=== PATIENT | female | born 1950 | race Caucasian/White ===

== ENCOUNTER → 2017-12-05 | Outpatient (CLI) | payer OTHER ==
[~2017-12-05] MED LIST: CYCL10TA6 PO; GLC/500 PO; HYDR2.5C37 TOP; HYDR25SU20 PR; HYDR25TA4 PO; LORA10TA51 PO; MELO-83 PO; MOVE FREE PO; OMEP40CA PO; POTA10CA28 PO; PRED20TA PO
--- NOTE | 2017-12-06 06:13 | PAP/PSG TECHNICIAN REPORT ---
[facility] Judo Teacher Polysomnogram Report Study name: None Report date: 12/06/2017 Study date: 12/05/2017 Referring Physician: Dr. Jazmine Thapa M.D. Name: MALIHA NOLAN Interpreting Physician: Nnamdi Maya M.D. Date of : 1950 Judo Teacher: Gail Berry RPSGT. Sex: Female Age: 67 Study Type: PSG Weight: 154 lbs 13.5 in Height: 67 years, Height 5' 4" Neck Circum: BMI: 26.43 Medications: MELOXICAM 15 MG, ASPIRIN 81 MG, METOPROLOL 25 MG, METFORMIN 500 MG, RANITIDINE 150 MG, PRAVASTATIN 10 MG, PANTOPRAZOLE 20 MG, PREMARIN 0.625 MG/GM, LORATIDINE 10 MG, PRESERVISION Patient History 67 yr-old female here for a baseline/split study. The split study is modified to initiate CPAP if the AHI is greater than 15. She has a history of snoring, witnessed apneas, frequent awakenings, and daytime sleepiness. Her [place] scale is 2. The test was started on room air. ETCO2 testing in included in this study. Room 3 Parameters Monitored NPSG: E1-M2, E2-M1, Fp1-M2, Fp2-M1, F3-M2, F4-M2, F4-M1, C3-M2, C4-M2, C4-M1, O1-M2, O2-M2, O2-M1, T3-M2, T4-M1, P3-M2, P4-M1, CHIN1, CHIN2, HR, EKG, Legs, PFLOW, SNOR, FLOW, CFLOW, Tidal Volume, THOR, ABDO, SpO2, PLTH, CPRESS, ETCO2 Wave, ETCO2, pH Sleep Architecture Sleep Stages Time at Lights Off 9:32:51 PM STAGES Time (min.) TST (%) Time at Lights On 5:28:21 AM Wake 222.5 -- Total Recording Time (TRT) 475.50 min. N1 49.0 19 Total Sleep Period (TSP) 449.0 min. N2 151.0 60 Total Sleep Time (TST) 253.0min. N3 33.5 13 Awake Time 222.5 min. REM 19.5 8 Wake after Sleep Onset 196.0 min. Sleep Efficiency (SE) 53 % Sleep Onset Latency (DAWN) 26.5 min. Number of Stage 1 Shifts None Awakenings 28 Stage Changes 110 Number of REM periods 1 REM 19.5 8 REM Latency 393.0 min. NREM 233.5 92 Body Position Analysis Supine Right Left Side Prone Vertical Total Sleep Time (min.) 117.4 37.5 176.2 213.68 0.0 0.0 Total Sleep Time (%) 16% 15% 70% 84 0% N/A% Total Sleep Time REM (min.) 0.0 0.0 19.5 None 0.0 0.0 Total Sleep Time NREM (min.) 39.3 37.5 156.7 None 0.0 0.0 Intermittent Wake (min.) 78.1 35.0 109.4 None 0.0 0.0 Total Sleep Period (%) 22% None None None None None Arousals Myoclonus (PLM) * Events Count Index Events Count Index Spontaneous 24 6 Events Awake (PLMW) 256 69.0 Respiratory 16 4.5 Events Asleep w/ Arousal (PLMA) 23 5.5 PLM 22 5 Events Asleep w/o Arousal (PLMS) 117 27.7 Snoring 6 1 Total Asleep 140 33.2 Total 65 15 Total 396 50 Respiratory Analysis * CA OA MA CH H RERA Total Count 5 7 3 0 45 8 60 Index 1.2 1.7 0.7 0 10.7 2 16.1 Mean Duration 15.2 16.2 22.2 0.00 17.4 17.2 17.3 Longest Duration 17.7 26.9 25.0 0.00 25.0 23.8 34.2 Respiratory Event Summary Total Supine ~Supine Right Left Prone REM NREM Apneas Count 15 10 5 1 4 N/A 1 14 Index 3.6 15 1 1.6 1.4 N/A 3 4 Hypopneas (4% Desat) Count 45 21 24 18 6 N/A 0 45 Index 10.7 32.0 7 28.8 2.0 N/A 0.0 11.6 Apneas & All Hypopneas Count 60 31 29 19 10 N/A 1 59 Index 14.2 47 8 30 3 N/A 3.1 15.2 Respiratory Events (Power System Operator+All Hyp+RERA) Count 60 32 36 25 11 N/A 1 59 Index 16.1 49 10 40.0 3.7 N/A 3.1 17.2 Respiratory Related Arousal Count 16 32 12 11 1 N/A 0 19 Index 4.5 11 3 18 0 N/A 0 5 Snoring Analysis Supine Right Left Prone REM NREM Total Snore duration 21.2 min Snores count 73 61 665 N/A 69 730 799 Snore mean duration 1.6 Sec Snores index 111 98 226 N/A 212.3 187.6 189.5 TST with snoring (%) 8.4% SpO2 Analysis Total REM NREM Awake <50% 0.0 min. 0.0 min. 0.0 min. 0.0 min. 51 - 60% 0.0 min. 0.0 min. 0.0 min. 0.0 min. 61 - 70% 0.0 min. 0.0 min. 0.0 min. 0.0 min. 71 - 80% 0.2 min. 0.0 min. 0.0 min. 0.2 min. 81 - 90% 96.5 min. 0.0 min. 76.0 min. 20.5 min. 91 - 100% 341.5 min. 19.5 min. 157.4 min. 164.6 min. Average 92 93 91 94 Minimum SpO2 79 91 84 79 Desaturation Event Index 12.5 0.0 17.7 8.9 # Desat. Events below 89% 57 N/A 46 11 Time(%) with Saturation below 89% 5.9 0.0 4.5 1.4 Time(min.) with Saturation below 89% 26.0 0.0 19.7 6.3 Heart Rate Analysis End Tidal CO2 Analysis Min (bpm) Max (bpm) Average (bpm) TSP (mins) % of TSP Awake 37 250 70 Above 55 mmHg 0.0 0.0 NREM 40 91 67 50-55 mmHg 0.0 0.0 REM 58 82 68 45-50 mmHg 115.5 45.7 Overall 40 91 67 40-45 mmHg 0.2 0.1 35-40 mmHg 76.7 30.3 30-35 mmHg 42.3 16.7 Average ETCO2 0.1 Supplemental O2 Values Minimum O2 level: None Value Start Time End Time Judo Teacher Comments Ms. Nolan slept in the right, left, and supine positions. Cardiac arrhythmias were noted throughout the study (please refer to the printout). PLMs were noted. No bruxism noted. Snoring was noted and scored as a 2 on a scale of 1 through 5. (0=no snoring, 5=snoring loud enough to be heard through a closed door or down the pablo way). A split study was attempted. At 1:50 am, she met specific Split-Night criteria during the diagnostic portion of this study. CPAP was initiated at +4 CMH2O. After starting CPAP, she struggled to tolerate the mask. She did have a small amount of sleep while wearing CPAP. But before any increases in pressure could be made, she requested to take the mask off. The test then was converted back to a baseline study with use of the thermistor. A Quattro Air full face mask size small from [employer] was used during titration. She awoke to use the restroom four times during the night. Ms. Nolan stated that she did not sleep well and did not care for the CPAP mask. The final report will be interpreted and signed by a sleep physician. The completed physician report will then be placed in the patient medical record. Therapy (cm H2O) 0 TIB (min.) 475.5 TST (min.) 253.0 Sleep Onset (min.) 26.5 REM Onset From Sleep (min.) 393.0 Sleep Efficiency % 53 Wakefulness (%) 47 Wakefulness (min.) 222.5 NREM 1 (%) 19 NREM 1 (min.) 49.0 NREM 2 (%) 60 NREM 2 (min.) 151.0 NREM 3 (%) 13 NREM 3 (min.) 33.5 REM (%) 8 REM (min.) 19.5 # Arousals 65 Arousal Index 15 # Snore 799 Snore Index 189.5 AHI 14.2 AHI Supine 47 AHI Non-Supine 8 NREM AHI 15.2 REM AHI 3.1 RDI 16.1 # Obstructive Apnea 7 # Central Apnea 5 # Mixed Apnea 3 # Hypopneas 45 RERAs 8 Total Respiratory Events 71 Time Below SpO2 89% (min.) 19.7 Mean NREM SpO2 (%) 91 Mean REM SpO2 (%) 93 Mean Sleep SpO2 (%) 91 Min NREM SpO2 (%) 84 Min REM SpO2 (%) 91 Position Supine (min.) 117.4 Position Non-supine (min.) 213.7 LM Index Sleep 33.2 LM Index NREM 35.5 LM Index REM 6.2 Mean Heart Rate (bpm) 67 Min Heart Rate (bpm) 40
--- NOTE | 2017-12-06 15:53 | POLYSOMNOGRAPH REPORT ---
CLINICAL DATA: A 67-year-old female with BMI of 26.4, referred by Dr. Thapa for a possible split night study if her AHI was greater than 15. She has snoring, witnessed apnea, frequent awakenings and daytime sleepiness. Her [place] sleepiness score was 2/24. SLEEP ARCHITECTURE: Total sleep period was 449 minutes. Total sleep time was 253 minutes divided between 233.5 minutes of non-REM sleep and 19.5 minutes of REM sleep. Sleep onset latency was 26.5 minutes. REM latency was delayed at 393 minutes. Sleep efficiency was reduced at 53%. Wake after sleep onset was elevated at 196 minutes. Sleep consisted of stage N1 19%, stage N2 60%, stage N3 13%, and REM 8%. AROUSAL DATA: Sixty five arousals were recorded for an index of 15 per hour. Twenty four were spontaneous. Twenty two were due to PLMs events. PERIODIC LIMB MOVEMENT DATA: One hundred and forty limb movements during sleep were noted for an index of 33.2 per hour with an arousal index of 5.5 per hour. RESPIRATORY DATA: Mild to moderate sleep apnea was documented. The AHI was 14.2. The RDI was 16.1. There were 5 central, 7 obstructive, and 3 mixed apneic episodes. The longest duration of apnea was 26.9 seconds. There were 45 hypopneic episodes. The longest hypopneic episode was 25 seconds. There were 8 RERAs. The longest RERA was 23.8 seconds. OXIMETRY DATA: Oxygen bakari was 84%. Mean saturation was 92%. Time below 89% was 26 minutes. ECHOCARDIOGRAM: Heart rates ranged from 40-91 beats per minute. Intermittent PVCs were noted. POLYSOMNOGRAPHY TECH'S COMMENTS: The patient slept in the right, left, and supine position. Snoring was mild, rated 2 on a scale 1-5. At 1:50 a.m., a split night study was attempted. CPAP was started at 4 cm of water pressure. She struggled with the mask and before any pressure increases could be made, she requested to have it discontinued. The study was then converted back to a baseline study. IMPRESSION: Mild to moderate sleep apnea/hypopnea with an apnea/hypopnea index of 14.2 and a respiratory disturbance index of 16.1 with an attempt at CPAP use. The patient was very intolerant of CPAP and could not proceed on with any CPAP titration. RECOMMENDATIONS: The patient should return to Dr. Thapa for his further recommendations. MTDD
== END | disposition home or self-care (01) ==
LOC: C.NEUR 21:00
PROVIDERS: ATTEND Internal Medicine
DX: G47.30 Sleep apnea, unspecified (principal)

== ENCOUNTER 2018-11-22 07:04 | Inpatient (IN) ==
--- NOTE | 2018-11-20 09:28 | Anesthesiology Consultation ---
Date of Service November 20, 2018 Assessment & Plan (1) Encounter for pre-operative examination: Plan: Preop EKG= 11/19/18= ST at 105bpm. ST/TWA, consider inferior ischemia (No signficant change compared to 01/15/2016 per cardio). Last seen by cardio= had accidentally taken her granson's Concerta/Loratadine and had subsequent dyspepsia/palpitations. Discussed ambulatory EKG but patient declined. Continued on current regimen. Seen in ER 11/17/2018 s/p mechanical fall (now with radius/humerus fractures-- reason for procedure)- denied chest pain, SOB, dizziness or syncope per ER note. Will evaluate clinical status AM DOS. - Check BSG AM DOS Chart Review Chart Review: Acceptable Risk for Surgery (pending clinical status evaluation AM DOS) and Patient NOT seen in Pre Admission Testing History Surgery Operation Date: 11/22/18 12:05 Proposed Procedures p Right Distal Radius Fracture Open Reduction Internal Fixation, Possible External Fixation Distal Radius, Right Humerus: Open Reduction Internal Fixation Humerus Fratures, Right Radius - Saúl Murray MD s External Fixator Application - Saúl Murray MD Height/Weight Height: 5 ft 4.75 in Weight: 69.4 kg Allergies Allergy/AdvReac Type Severity Reaction Status Date / Time morphine AdvReac Mild NAUSEA Verified 11/20/18 07:36 Medications Home Medications Medication Instructions Recorded Confirmed Last Taken conjugated estrogens [Premarin] 1 applic VAGINAL 2XWK 11/17/18 11/20/18 Unknown cyclobenzaprine 5 mg PO TID PRN 11/17/18 11/20/18 Unknown diltiazem HCl [Cardizem CD] 120 mg PO QAM 11/17/18 11/20/18 Unknown fluticasone [Flonase Allergy 1 spray INTRANASAL DAILY PRN 11/17/18 11/20/18 Unknown Relief] meloxicam 15 mg PO QAM 11/17/18 11/20/18 Unknown metformin 1,000 mg PO QAM 11/17/18 11/20/18 Unknown oxycodone 5 mg PO Q6H PRN #20 tab 11/17/18 11/20/18 Unknown pantoprazole 40 mg PO QAM 11/17/18 11/20/18 Unknown pravastatin 10 mg PO HS 11/17/18 11/20/18 Unknown ranitidine HCl 150 mg PO BID 11/17/18 11/20/18 Unknown aspirin [Aspirin Low Dose] 81 mg PO QAM 11/20/18 11/20/18 Unknown melatonin 5 - 10 mg PO HS PRN 11/20/18 11/20/18 Unknown Past Medical History Medical History Chronic back pain Degenerative disc disease Diabetes mellitus, type 2 NIDDM GERD (gastroesophageal reflux disease) Hiatal hernia History of palpitations Hyperlipidemia Hypertension Kidney stones Macular degeneration LEFT EYE Osteoarthritis Sleep apnea CPAP Past Family History Family History Mother FHx: Hodgkin's disease Past Surgical History Surgical History Fusion of spine C3-C4 (NO ROM LIMITATIONS PER PATIENT) H/O vaginal surgery ANTERIOR AND POSTERIOR REPAIR History of appendectomy History of carpal tunnel release RIGHT History of colonoscopy History of esophagogastroduodenoscopy (EGD) History of lithotripsy History of tonsillectomy S/P laparotomy / TUBAL (+RSO) Social History Smoking Status: Never smoker Do You Dip or Chew Tobacco: No Hx Alcohol Use: No Hx Substance Use: No substance use type: does not use Testing Electrocardiogram Date: 11/19/18 ST at 105[address]pm. ST/TWA, consider inferior ischemia (No signficant change compared to 01/15/2016 per cardio). Chest X-Ray Date: 11/17/18 Findings: + NAD A right humeral neck fracture is partially imaged. atherosclerotic calcification of the thoracic aorta. There is mild elevation of the right hemidiaphragm (same side as procedure) and bibasilar atelectasis. Echocardiogram Date: 08/28/17 LVEF 55-59%. No RWMA. Grade I DD. Basal septum consistent with sigmoid septum. No significant valvular disease. Stress Test Date: 08/28/17 Type: nuclear (LEXISCAN) Myocardial perfusion normal. EF 63%. 105% MPHR. Laboratory Results 11/19/18 WBC 11.83 (surgeon aware) H/H 13.2/39.2 PLATELETS 235 PT 10.3 PTT 24.7 INR 1.0 UA +1 bacteria (surgeon aware)
--- NOTE | 2018-11-21 12:30 | History and Physical Report ---
DATE OF ADMISSION: 11/22/2018 CHIEF COMPLAINT: Right shoulder and right wrist pain. HISTORY OF PRESENT ILLNESS: The patient is a 68-year female who suffered injuries to her right wrist and shoulder when she had a fall at home. She had immediate pain and disability. She was seen at [facility] ED for evaluation. X-rays revealed a right wrist fracture as well as a right proximal humerus fracture. She was referred to our office for further orthopedic evaluation. PAST MEDICAL HISTORY: Hypertension, hypercholesterolemia, irregular heartbeat, sleep apnea with CPAP use, type 2 diabetes, osteoarthritis, kidney stones, acid reflux. PAST SURGICAL HISTORY: Unknown. MEDICATIONS: Metformin 500 mg twice daily, PreserVision daily, aspirin 81 mg daily, Move Free joint health daily, Cartia XT 120 mg daily, ranitidine 150 mg twice daily, pravastatin 10 mg daily, pantoprazole 20 mg daily, meloxicam 50 mg daily. ALLERGIES: MORPHINE. SOCIAL HISTORY AND REVIEW OF SYSTEMS: Noncontributory. PHYSICAL EXAMINATION: GENERAL: Well-nourished, well-developed female who appears stated age. HEENT: Normocephalic, atraumatic, extraocular movements intact, oropharynx pink and moist. NECK: Supple without adenopathy. LUNGS: Clear to auscultation bilaterally. HEART: Regular rate and rhythm. ABDOMEN: Soft, nontender, nondistended. EXTREMITIES: The right wrist is in an ortho ground-glass splint. She is in a sling for the shoulder injury as well. Fingers were mobile, neurovascularly intact. X-RAYS: X-rays were reviewed. She has 100% displaced 2-part proximal humerus fracture. She also has a comminuted dorsally displaced distal radius fracture. ASSESSMENT: 1. Right proximal humerus fracture. 2. Right distal radius fracture. PLAN: Risks versus benefits were discussed, consent was obtained. We will proceed with ORIF of her right shoulder versus external fixator of the right wrist as indicated.
[~2018-11-22 07:04] MED LIST changes: +CEFAZOLIN 1000MG 1,000 MG/7.5 ML SYR IV SCH; -CYCL10TA6 PO; -GLC/500 PO; -HYDR2.5C37 TOP; -HYDR25SU20 PR; -HYDR25TA4 PO; -LORA10TA51 PO; +LR 15ML/HR IV SCH; -MELO-83 PO; +MISSING PHYSICIAN SIGNATURE ON ORDER SCH; -MOVE FREE PO; -OMEP40CA PO; -POTA10CA28 PO; -PRED20TA PO; +ROPIVACAINE 0.5% 5 MG/ML 30 ML VIAL ONE
[2018-11-22] MEDS ORDERED: PROPOFOL IV EMULSION 10 MG/ML 20 ML VIAL IV ONE ×2 (08:59→10:24)
[2018-11-22] MEDS ORDERED: LIDOCAINE HCL 2% 2 ML VIAL/AMP(20MG/ML) INFIL ONE ×2 (08:59→10:24)
[2018-11-22] MEDS ORDERED: fentaNYL citrate 100 MCG/2 ML VIAL ONE ×3 (09:00→10:43)
[2018-11-22] MEDS ORDERED: MIDAZOLAM HCL 1 MG/ML 2ML VIAL ONE ×2 (09:00→10:25)
[2018-11-22] MEDS ORDERED: ONDANSETRON INJ 2 MG/ML 2 ML VIAL ONE (09:01)
[2018-11-22] MEDS ORDERED: DEXAMETHASONE SOD INJ 4 MG/ML VIAL ONE (09:01)
--- NOTE | 2018-11-22 09:59 | History & Physical Bridge Note ---
Date of Service November 22, 2018 History & Physical Bridge Note I have examined the patient, reviewed the History & Physical and in the interval since the performance of the History & Physical I have noted the following changes of clinical significance: no changes noted
[2018-11-22] MEDS ORDERED: PROMETHAZINE HCL 12.5 MG in SODIUM CHLORIDE 0.9% 50 ML IV PRN (10:19)
[2018-11-22] MEDS ORDERED: ONDANSETRON INJ 2 MG/ML 2 ML VIAL IV PRN ×2 (10:19→14:05)
[2018-11-22] MEDS ORDERED: ATROPINE SULFATE 0.1 MG/ML 10ML SYR IV PRN (10:19)
[2018-11-22] MEDS ORDERED: FLUMAZENIL 0.1 MG/1 ML 10 ML VIAL IV PRN (10:19)
[2018-11-22] MEDS ORDERED: ePHEDrine sulfate 50 MG/ML AMP IV PRN (10:19)
[2018-11-22] MEDS ORDERED: LABETALOL HCL IV 5 MG/ML 20ML IV PRN (10:19)
[2018-11-22] MEDS ORDERED: NALOXONE HCL 0.4 MG/1 ML VIAL/CARP IV PRN ×2 (10:19→14:05)
[2018-11-22] MEDS ORDERED: SUCCINYLCHOLINE CHLORIDE 20 MG/ML 10 ML VIAL ONE (10:52)
[2018-11-22] MEDS ORDERED: ESMOLOL HCL INJ 10 MG/ML 10ML VIAL IV ONE (11:35)
--- NOTE | 2018-11-22 12:23 | Operative Report ---
Post Operative Report Pre & Post Diagnosis Operation Date: 11/22/18 10:05 Pre-Op Diagnosis: 1. Right proximal humerus fracture 2. Right distal radius fracture Post-Op Diagnosis: 1. Right proximal humerus fracture 2. Right distal radius fracture Procedure Operation Date: 11/22/18 10:05 Actual Procedures p Right Distal Radius Fracture External Fixation, Right Humerus Open Reduction Internal Fixation(Right) - Saúl Murray MD s External Fixator Application Right Distal Radius fracture(Right) - Saúl Murray MD Surgeon Saúl Murray MD Block And Case Maker Bryan Estimated Blood Loss 100 Findings Consistent with Post-Op Diagnosis Specimens None Complications none Disposition Accompanied Patient To Recovery: No Disposition: Recovery Room Description of Procedure Patient's right arm was prepped and draped in usual sterile manner first the shoulder was approached where a deltopectoral incision was made subcutaneous tissues bluntly dissected electrocautery with hemostasis. Cephalic vein was identified and protected and blunt dissection was taken down to bone. Open reduction of the fracture was carried out and provisionally held using a proximal humeral locking plate was applied to the lateral aspect of the humerus fixing the fracture in anatomic position check x-rays ensured good screw length throughout. This wound was irrigated and closed using #1 Vicryl 2-0 Dexon and 4 -0 nylon. Next attention was turned to the distal radius where a closed reduction was carried out. The intra-articular nature of the fracture with the very distal nature of the fracture was identified and the decision was made to go with an external fixator to through the tip pins were placed through the metacarpal and additional 2 were placed through the distal radius and while the reduction was held the external fixator was clamped in position. To maintain an anatomic reduction of the fracture. The wounds were irrigated and dressed with Xeroform 4 x 4's and Kerlix. The patient tolerated the procedure well. Mr. Masterskatey was utilized for portion of the case including positioning prepping draping surgical assistance wound closure and dressing application. I attest to the content of the Intraoperative Record and any orders documented therein. Any exceptions are noted below.
--- NOTE | 2018-11-22 12:41 | Fluoroscopy Report ---
FL wrist RT 3V RTN CLINICAL HISTORY: RIGHT DISTAL RADIUS ORIF COMPARISON STUDY: 11/17/2018 FLUOROSCOPY TIME: 11 seconds NUMBER OF FLUOROSCOPIC IMAGES: 3 FINDINGS: Operative placement of an external fixator involving the distal radius extending to the met acarpals. Fracture distal radius is again noted. Alignment is improved. IMPRESSION: Operative placement of an external fixator. The above report was generated using voice recognition software. It may contain grammatical, syntax or spelling errors. Electronically signed by: Lazaro Cuadra M.D. 11/22/2018 12:39 PM
--- NOTE | 2018-11-22 12:41 | Fluoroscopy Report ---
FL humerus RT 2V CLINICAL HISTORY: ORIF FX RT ARM COMPARISON STUDY: 11/17/2018 FLUOROSCOPY TIME: 16 seconds. NUMBER OF FLUOROSCOPIC IMAGES: 2 FINDINGS: There is an internally fixated proximal right humeral fracture. There is a lateral metallic plate with multiple screws. No dislocation is evident. IMPRESSION: Internally fixated proximal right humeral fracture. Electronically signed by: Harish Park M.D. 11/22/2018 12:40 PM
[2018-11-22] MEDS: HYDROmorphone INJ 1 MG/ML SYRINGE IV PRN ×4 (13:18→13:33)
--- NOTE | 2018-11-22 13:40 | Anesthesiology Progress Note ---
Date of Service November 22, 2018 Anesthesia Post Procedure Vital Signs Vital Signs: Temp Pulse Pulse Resp BP Pulse Ox 11/22/18 13:35 76 16 159/84 H 95 11/22/18 13:25 36.4 C L 77 16 162/82 H 94 11/22/18 13:15 78 16 150/71 H 94 11/22/18 13:05 75 14 150/88 H 97 11/22/18 12:55 77 16 141/87 H 97 11/22/18 12:49 36.2 C L 84 16 163/88 H 93 11/22/18 08:12 36.9 C 115 H 20 134/108 H 98 Pain Intensity Right Arm: Pain Intensity: 7 Left Lower Leg: Pain Intensity: 3 Notes Mental Status: alert / awake / arousable Patient Amnestic to Procedure: Yes Nausea / Vomiting: adequately controlled Pain: adequately controlled Airway Patency, RR, SpO2: stable & adequate BP & HR: stable & adequate Hydration State: stable & adequate Anesthetic Complications: no major complications apparent
[2018-11-22] MEDS ORDERED: SODIUM CHLORIDE 0.9% 1000ML 1,000 ML IV SCH (14:05)
[2018-11-22] MEDS ORDERED: MAGNESIUM HYDROXIDE SUSP 30 ML UDC PO PRN (14:05)
[2018-11-22] MEDS ORDERED: METOCLOPRAMIDE HCL INJ 5 MG/ML 2 ML VIAL IV PRN (14:05)
[2018-11-22] MEDS ORDERED: BISACODYL 10 MG SUPP PR PRN (14:05)
[2018-11-22] MEDS ORDERED: HYDROmorphone INJ 0.5 MG/0.5 ML SYR IV PRN (14:05)
[2018-11-22] MEDS ORDERED: FLUTICASONE PROPIONATE NA SPR 16 GM BTL PRN (14:05)
[2018-11-22] MEDS ORDERED: GLUCOSE 10 TABS/TUBE PO PRN (14:27)
[2018-11-22] MEDS ORDERED: CARBOHYDRATES FOR HYPOGLYCEMIA PO PRN (14:27)
[2018-11-22] MEDS ORDERED: GLUCAGON FOR INJ 1 MG VIAL SQ PRN (14:27)
[2018-11-22] MEDS ORDERED: GLUCOSE 40% GEL 15 GM TUBE PO PRN (14:27)
[2018-11-22] MEDS ORDERED: DEXTROSE 50% 50 ML SYRINGE IV PRN (14:27)
[2018-11-22] MEDS ORDERED: PHARMACY GLYCEMIC MGMT CONSULT SCH (14:29)
[2018-11-22] MEDS ORDERED: LANTUS PER UNIT CHARGE SQ ONE ×3 (14:30→21:00)
[2018-11-22] MEDS: ACETAMINOPHEN 500 MG TAB PO SCH ×2 (14:52→21:07)
--- NOTE | 2018-11-22 14:52 | Pharmacy Report ---
Glycemic Control Consultation - Date of Service November 22, 2018 - Scope Scope: Glycemic Pharmacist consulted by Main Adams on 11/22/18 for glycemic control and to write orders per [facility] inpatient glycemic control protocol - Objective Weight: 69.808 kg Accuchecks BSG (last 24hrs): 11/22/18 11/22/18 11/22/18 07:49 12:56 14:20 POC Glucose 154 H 117 H 172 H - Recent Pertinent Medications Outpatient Anti-diabetic Regimen: * Metformin 1g PO daily * A1c = pending Risk Factors for Insulin Resistance: * Steroids: Dexamethasone 8mg IV x 1 * Recent Surgery: s/p radius and humerus fixations * Diet: Type 2 DM - Assessment & Plan Assessment & Plan: ASSESSMENT: * 68 year old female admitted with radius and humerus fractures, s/p fixations. * Type 2 diabetic, unknown outpatient control, updated A1c ordered * Pt is maintained on oral antidiabetic agents as an outpatient * Oral agents are not recommended for inpatient use d/t drug interactions, changing PO intake, and difficulty titrating for acute hyper/hypoglycemia. ADA recommends re-initiating outpatient oral agents 1-2 days prior to discharge if/ when appropriate if they were held on admission. * Will hold oral agents for admission and utilize SQ basal bolus insulin regimen which is the recommended regimen for inpatient glycemic control. * Will initiate weight based insulin dosing for insulin na�ve patient and titrate based on BSG trends. * One time stress of 3 Lantus dose now for IV Dexamethasone received intraop, for anticipated hyperglycemia, patient already above goal with BSG 172mg/dl postop. * Will give additional Lantus in AM, based on BSGs * Accuchecks overnight d/t IV steroids * ADA & AACE recommend a goal blood sugar range 140-180 mg/dl for the majority of critically ill & non-critically ill patients. However, more stringent targets may be selected in individual cases. Will utilize more stringent goal of 110-140mg/dl based on patient age & comorbidities. Additionally, tighter glycemic control is warranted to facilitate wound/infection healing. PLAN FOR INPATIENT GLYCEMIC CONTROL: * Holding outpatient oral diabetes medications * Basal insulin * Lantus 30 units SQ x 1 dose NOW, then further dosing in the morning based on BSGs * Bolus insulin * NovoLog per scale ACHS or Q6hrs while NPO and at 0000 and 0400 * Goal Range: Low 110 mg/dL - High 140 mg/dL * Correction Factor: 25 mg/dL/unit * Nutritional / Prandial insulin per carb ratio of 1 unit per 8 grams CHO consumed * Please note that the plan above was derived based on current level of insulin resistance and hospital stress. These recommendations are appropriate for inpatient admission only. Plan of care upon discharge will need to be reassessed to avoid potential outpatient hypo/hyperglycemia. Thank you.
[2018-11-22] MEDS: OXYCODONE HCL IR 5 MG TAB (IMMEDIATE RELEASE) PO PRN (18:40)
[2018-11-22] MEDS: CEFAZOLIN 1000MG 1,000 MG/7.5 ML SYR IV SCH (18:54)
[2018-11-22] MEDS: INSULIN ASPART 100 UNITS/ML 3 ML PEN SC SCH ×2 (19:08→21:11)
[2018-11-22] MEDS ORDERED: SENNA 8.6 MG TAB PO SCH (21:00)
[2018-11-22] MEDS ORDERED: PRAVASTATIN SOD 10 MG TAB PO SCH (21:00)
[2018-11-22] MEDS: ASPIRIN 81 MG ECTAB PO SCH (21:04)
[2018-11-22] MEDS: DOCUSATE SODIUM 100 MG CAP PO SCH (21:04)
[2018-11-23] MEDS: INSULIN ASPART 100 UNITS/ML 3 ML PEN SC SCH ×4 (00:01→14:27)
[2018-11-23] MEDS ORDERED: COUGH DROP (SUGAR FREE) LOZ 24 LOZ/1 BOX BUCCAL PRN (00:04)
[2018-11-23] MEDS: CEFAZOLIN 1000MG 1,000 MG/7.5 ML SYR IV SCH (03:54)
[2018-11-23] MEDS: OXYCODONE HCL IR 5 MG TAB (IMMEDIATE RELEASE) PO PRN ×2 (03:54→08:59)
[2018-11-23] MEDS: ACETAMINOPHEN 500 MG TAB PO SCH ×2 (05:34→14:27)
[2018-11-23 07:23] LABS: Hematocrit (blood only) 33.2 % (37-47); Hemoglobin 11.3 g/dL (12.0-16.0); Mean Corpuscular Volume 89.7 fL (80-100); Mean Platelet Volume 9.9 fL (7.4-10.4); Platelet Count 257 K/uL (130-400); RDW Coefficient of Variation 14.7 % (11.5-14.5); RDW Standard Deviation 47.7 fL (36.4-46.3); White Blood Count 13.51 K/uL (4.8-10.8)
[2018-11-23 07:48] LABS: BUN Creatinine Ratio 14.4 (10-20); Calcium 8.2 mg/dl (8.5-10.1); Creatinine Clr Calc Pharmacy 63.3 ml/min; Est GFR (Non-African American) 72.5; Potassium 3.4 mmol/L (3.5-5.1)
--- NOTE | 2018-11-23 08:07 | Orthopedic Progress Note ---
Date of Service November 23, 2018 Assessment & Plan (1) Closed fracture of neck of right humerus: Continue sling for now. Nonweightbearing on the right upper extremity with no range of motion of the right shoulder at this time. She will have PT and OT protocols today. Continue DVT prophylaxis with SCDs, MICHELLE hose and aspirin twice daily. Pain management with hydromorphone, oxycodone, acetaminophen. As long as she is progressing with her PT, we will plan for discharge today. (2) Closed fracture of right distal radius: Subjective Postop day 1 status post ORIF right proximal humerus and application of external fixator right wrist for radius fracture. Patient is currently lying in bed is awake and alert and oriented. She states that she has some discomfort in the wrist more than the shoulder but is otherwise doing well. Any shortness of breath, chest pain, lightheadedness. He states that the pain medications are helping her. She is hoping to go home today. Physical Exam 2 Vital Signs (Past 24 Hours): Last Vital Signs Temp 36.9 C 11/23/18 07:31 Pulse 92 H 11/23/18 07:31 Resp 18 11/23/18 07:31 BP 162/74 H 11/23/18 07:31 Pulse Ox 91 11/23/18 07:31 Physical Exam: Dressings are clean dry and intact on the right shoulder. Dressings and external fixator appear intact on the right wrist. No overt drainage is noted on either dressing. She is moving her fingers well of the right hand and has good sensation. She states that it hurts whenever she moves her fingers is tolerating well. Capillary refill is less than 2 seconds. _ (1) Closed fracture of neck of right humerus Encounter type: initial encounter Fracture healing: Qualified Code(s): S42.211A - Unspecified displaced fracture of surgical neck of right humerus, initial encounter for closed fracture (2) Closed fracture of right distal radius Encounter type: initial encounter Fracture healing: Fracture morphology: unspecified fracture morphology Qualified Code(s): S52.501A - Unspecified fracture of the lower end of right radius, initial encounter for closed fracture
[2018-11-23] MEDS: DOCUSATE SODIUM 100 MG CAP PO SCH (08:32)
[2018-11-23] MEDS: ASPIRIN 81 MG ECTAB PO SCH (08:32)
[2018-11-23 08:34] LABS: Estimated Average Glucose 120 mg/dl; Hemoglobin A1C 5.8 % (4.5-5.6)
[2018-11-23] MEDS ORDERED: dilTIAZem HCL 120 MG CAPCR PO SCH (09:00)
[2018-11-23] MEDS ORDERED: METFORMIN HCL ER 500 MG TABCR PO SCH (09:00)
[2018-11-23] MEDS ORDERED: MULTIVITAMIN TAB PO SCH (09:00)
[2018-11-23] MEDS ORDERED: PANTOprazole 40 MG TAB PO SCH (09:00)
--- NOTE | 2018-11-23 09:52 | Anesthesiology Progress Note ---
Date of Service November 23, 2018 Anesthesia Post Procedure Vital Signs Vital Signs: Temp Pulse Pulse Resp BP Pulse Ox 11/23/18 07:31 36.9 C 92 H 18 162/74 H 91 11/23/18 02:59 37.0 C 93 H 16 148/71 H 91 11/23/18 00:08 37.0 C 63 16 135/70 90 11/22/18 18:58 36.7 C 79 16 158/78 H 91 11/22/18 16:02 96 H 16 138/80 96 11/22/18 15:05 36.6 C 75 99 H 152/75 H 99 11/22/18 14:34 36.7 C 85 16 160/82 H 96 11/22/18 14:05 37.0 C 83 14 159/83 H 95 11/22/18 13:45 76 16 161/84 H 95 11/22/18 13:35 76 16 159/84 H 95 11/22/18 13:25 36.4 C L 77 16 162/82 H 94 11/22/18 13:15 78 16 150/71 H 94 11/22/18 13:05 75 14 150/88 H 97 11/22/18 12:55 77 16 141/87 H 97 11/22/18 12:49 36.2 C L 84 16 163/88 H 93 Pain Intensity Right Arm: Pain Intensity: 4 Left Lower Leg: Pain Intensity: 3 Notes Mental Status: alert / awake / arousable Patient Amnestic to Procedure: Yes Nausea / Vomiting: adequately controlled Pain: adequately controlled Airway Patency, RR, SpO2: stable & adequate BP & HR: stable & adequate Hydration State: stable & adequate Anesthetic Complications: no major complications apparent
--- NOTE | 2018-11-23 10:22 | Pharmacy Report ---
Pharmacy Glycemic Short Note 2 - Date of Service November 23, 2018 - Glycemic Short BSG Results (Last 24 hours): 11/22/18 11/22/18 11/22/18 12:56 14:20 19:00 Glucose POC Glucose 117 H 172 H 203 H 11/22/18 11/22/18 11/23/18 21:03 23:54 03:54 Glucose POC Glucose 173 H 138 H 130 H 11/23/18 11/23/18 06:53 08:05 Glucose 138 H POC Glucose 134 H OUTPATIENT ANTIDIABETIC REGIMEN: * Metformin 1,000mg PO daily * A1c = 5.8% on 11/23/18 ASSESSMENT: * 68yo T2DM female s/p hip fracture surgery * Pt initially with hyperglycemia post-operatively secondary to dxm given intraop. Pt ordered weight/high stress SQ basal bolus insulin dosing for steroid induced hyperglycemia. * Hyperglycemia now resolved with effects of dxm dissipating. Will start to taper insulin and resume oral outpatient anti-diabetic medications in anticipation of discharge. PLAN FOR INPATIENT GLYCEMIC CONTROL: * Resume oral outpatient antidiabetic agents now that tolerating PO and POD#1 * Metformin 1,000mg PO Daily * Basal insulin * DC * Bolus insulin: loosen parameters * NovoLog per scale ACHS or Q6hrs while NPO * Goal Range: Low 110 mg/dL - High 140 mg/dL * Correction Factor: 35 mg/dL/unit * Nutritional / Prandial insulin per carb ratio of 1 unit per 11 grams CHO consumed * Will dc CR this evening after metformin initiated
--- NOTE | 2018-11-29 10:33 | Discharge Summary ---
DISCHARGE DIAGNOSES: Right proximal humerus fracture, right distal radius fracture. SECONDARY DIAGNOSES: Hypertension, hypercholesterolemia, irregular heartbeat, sleep apnea with CPAP use, type 2 diabetes mellitus, osteoarthritis, history of renal calculi, gastroesophageal reflux disease. CONSULTATIONS: None. COMPLICATIONS: None. PROCEDURES: ORIF right proximal humerus fracture and closed reduction and application of external fixator of right distal radius fracture by Dr. Murray on 11/22/2018. BRIEF HISTORY: As dictated in the history and physical. HOSPITAL SUMMARY: The patient was admitted on the above-noted date and had the above-noted surgery performed, which she tolerated well. On the first postoperative day, she was lying in bed, awake and alert, states that she had some discomfort in the wrist more than the shoulder, but was otherwise doing well. She had no shortness of breath or chest pain or lightheadedness. She stated the pain medications were helping her and she was hoping to get home that day. Vital signs were stable. She was afebrile. Dressings were clean, dry and intact in the right shoulder. Dressings and external fixator appeared intact on the right wrist. She had no overt drainage noted on either dressing. She was moving her fingers well. The right hand had good sensation. Cap refill was less than 2 seconds. Plans were to continue sling for the right upper extremity, nonweightbearing on the right upper extremity with no range of motion of the right shoulder at that time. PT and OT protocols for the morning, DVT prophylaxis with SCDs, MICHELLE hose and aspirin, pain management with hydromorphone, oxycodone, acetaminophen. She progressed well with her PT and it was felt she could be discharged to home on 11/23/2018. For further review, please see chart. LABORATORY AND X-RAY DATA: As per chart. DISCHARGE INSTRUCTIONS: The patient was discharged home in satisfactory condition on 11/23/2018. Diet: Type 2 diabetic. Activity: Nonweightbearing right upper extremity. Follow instructions as written and follow up with Dr. Murray in 2 weeks. The patient is to call for appointment if one has not been made for you. DISCHARGE MEDICATIONS: Acetaminophen 1000 mg p.o. q. 8 hours, oxycodone 5-10 mg p.o. q. 6 hours p.r.n. Resume home meds as listed and stop taking extra-strength Tylenol with prior dose. Stop taking meloxicam and previous oxycodone dosage.
== END 2018-11-23 15:35 | disposition home health service (06) | DRG 493 ==
LOC: ASU 07:04 → 3E 13:06

== ENCOUNTER 2022-10-25 10:23 | Inpatient (IN) ==
[2022-10-25] MEDS ORDERED: ONDANSETRON INJ 2 MG/ML 2 ML VIAL IV STA (11:25)
[2022-10-25] MEDS ORDERED: fentaNYL citrate 100 MCG/2 ML VIAL IV STA ×3 (11:25→13:24)
--- NOTE | 2022-10-25 11:39 | XRay Report ---
XR ankle RT min 3V routine HISTORY: 72 years-old Female pain acute pain of the right ankle status post trauma COMPARISON: None TECHNIQUE: 3 views of the right ankle FINDINGS: Acute fracture dislocation of the right ankle. Acute comminuted angulated and displaced distal fibula r fracture with apex medial angulation. Medial malleolar fracture demonstrates several millimeters of lateral displacement. Stevenson volar angulation. Acute posterior malleolar fracture is also present. The re is tibiotalar dislocation with apex medial angulation. The distal tibia is displaced 2.5 cm in rel ation to the talus. Demineralized appearance of the bones with mild to moderate osteoarthritis. IMPRESSION: Acute fracture dislocation of the ankle as above. ACT 112: Negative or not required by law. The above report was generated using voice recognition software. It may contain grammatical, syntax o r spelling errors. Electronically signed by: Rodrigue Jordan M.D. 10/25/2022 11:38 AM
--- NOTE | 2022-10-25 11:46 | Emergency Department Note ---
ED Provider Note History of Present Illness Chief Complaint: Ankle Pain Stated Complaint: POSSIBLE RIGHT BROKEN ANKLE Time Seen by Provider: 10/25/22 11:01 72-year-old female who presents to the emergency department for evaluation of a right ankle injury this morning when she slipped on rocks that were covered with ice, and fell. The patient reports a deformity and pain of the right ankle. She denies any other injuries, including head injury, neck pain or back pain. She rates her discomfort a 10 out of 10. The patient has had prior orthopedic surgery performed by Dr. Murray with [facility]. Home Medications Medication Instructions Recorded Confirmed Type conjugated estrogens 0.625 mg/gram 1 applic vaginal DIRECTED PRN 11/17/18 10/25/22 History vaginal cream (Premarin) Menopausal Symptoms metformin 500 mg tablet 500 mg PO BID 11/17/18 10/25/22 History Lactobacills gasseri-Bifidobac 1 cap PO QAM 09/27/19 10/25/22 History bifidum,longum 1.5 billion cell capsule (Cooleaf) cartilage 40 mg-collagen II-boron 1 tab PO QAM 09/27/19 10/25/22 History 5 mg-hyaluronate sod 3.3 mg tablet (Move Free Ultra Triple Action (boron)) coenzyme Q10 30 mg capsule (CoQ-10) 0 mg PO QAM 09/27/19 10/25/22 History famotidine 20 mg tablet 20 mg PO HS PRN Heartburn 09/27/19 10/25/22 History vit C 250 mg-vit E 90 mg-zinc 40 1 tab PO BID 09/27/19 10/25/22 History mg-copper 1 ut-gghjwu-uakjca capsule (PreserVision AREDS-2) diclofenac sodium 1 % topical gel 2 g topical QID PRN Pain 08/23/22 10/25/22 History docusate sodium 100 mg capsule 100 mg PO BID 08/23/22 10/25/22 History diltiazem HCl 180 mg 180 mg PO DAILY 10/25/22 10/25/22 History capsule,extended release 24 hr pantoprazole 40 mg tablet,delayed 40 mg PO DAILY 10/25/22 10/25/22 History release pravastatin 40 mg tablet 40 mg PO HS 10/25/22 10/25/22 History Allergies Allergy/AdvReac Type Severity Reaction Status Date / Time morphine AdvReac Intermediate Nausea/Vomi Verified 09/13/22 08:20 ting Past Med/Surg History Medical History Chronic back pain Degenerative disc disease Diabetes mellitus, type 2 NIDDM GERD (gastroesophageal reflux disease) Hiatal hernia History of palpitations resolved Hyperlipidemia Hypertension follows w/ [facility]ia Aguirre- [facility] - last visit spring 2021 Kidney stones Macular degeneration LEFT EYE Osteoarthritis Prediabetes Sleep apnea no longer using device Surgical History Fusion of spine C3-C4 (NO ROM LIMITATIONS PER PATIENT) H/O vaginal surgery ANTERIOR AND POSTERIOR REPAIR History of appendectomy History of carpal tunnel release RIGHT History of colonoscopy History of esophagogastroduodenoscopy (EGD) History of lithotripsy History of tonsillectomy Hx of cystoscopy Hx of shoulder surgery ORIF RIGHT S/P laparotomy 2/2 TUBAL (+RSO) Family History Mother FHx: Hodgkin's disease Father Heart disease Social History Smoking Status: Never smoker Second Hand Exposure: No; Do You Dip or Chew Tobacco: No; Hx Alcohol Use: No Hx Substance Use: No Preferred Language: Ukrainian Communication Ability: Effective Sack Sewer Machine Required: No Beliefs That Will Affect Care: None marital status: Current Living Situation: Spouse Current Living Situation Comment: [facility] Feels Safe at Home: Yes Safety Concerns: Feels Safe At This Time Assistive Devices: Denture - Upper and Glasses Physical Exam Vital Signs Vital Signs - 24 hr 10/25/22 10:55 10/25/22 12:11 Temperature 36.3 C L Temperature Source Temporal Artery Scan Pulse Rate 75 Pulse Rate [Finger] 72 Respiratory Rate 18 20 Respiratory Effort / Characteristics Non-Labored Spontaneous Respiratory Depth Normal Respiratory Pattern Regular Blood Pressure 135/66 Blood Pressure [Right Arm] 149/79 H Blood Pressure Mean 89 Blood Pressure Mean [Right Arm] 102 Blood Pressure Position Sitting Blood Pressure Position [Right Arm] Sitting Pulse Oximetry 98 97 Oxygen Delivery Method Room Air Room Air Sepsis Recent Fever Within 48 Hours No Sepsis New/Unexplained Change in Mental Status No Sepsis Action Taken by Nursing No Action Required CONSTITUTIONAL: Healthy and well nourished. Patient appears in mild to moderate discomfort. Alert and oriented x3. HEENT: Normocephalic, atraumatic. NECK: Full active range of motion without discomfort. RESPIRATORY: Clear to auscultation bilaterally with no wheezing, crackles, rhonchi or stridor. CARDIOVASCULAR: Regular rate and rhythm with no murmurs, rubs or gallops. GASTROINTESTINAL: Bowel sounds present in all quadrants. Soft and nontender to palpation. MUSCULOSKELETAL: Examination shows a deformity of the right ankle with notable medial skin tenting. No open wounds noted. Pedal pulses are present but weak. Cap refill of the toes is approximately 3 seconds. INTEGUMENTARY: No rash or other significant dermatologic conditions noted. HEMATOLOGIC: No ecchymosis or petechiae. PSYCHIATRIC: Positive affect. NEUROLOGIC: Right foot and toes are grossly sensory intact. Procedures Free Text Procedures Ankle fracture reduction was performed using IV fentanyl analgesics. It is noted that the patient had an unstable fracture with continuous tibiotalar dislocation. This required constant one-on-one traction performed by me. Postreduction x-rays shows improved alignment. With assistance by one of our ED technicians, an ankle stirrup and posterior Ortho-Glass splint was applied, ap plying pressure to the lateral ankle and foot region to maintain reduction. Patient maintained neurovascular status throughout her ED management. Course Course Patient history and physical exam were performed. Nurses notes were reviewed. Vital signs were reviewed and were normal. X-ray orders were placed per nursing protocol due to a busy emergency department. X-rays were completed as I assumed patient care, showing a trimalleolar fracture dislocation. I explained to the patient that I would need to perform a quick reduction of the ankle. She refused without conscious sedation. She last ate breakfast at 8:00. I explained that hospital policy is 8 hours after eating for conscious sedation. I did recommend starting an IV, and giving her some IV fentanyl in order to provide pain relief prior to reduction, and the patient was in agreement. The patient reports that she is allergic to morphine, which causes nausea and vomiting. I did indicate the fentanyl is much quicker onset in order to provide quick reduction, and the patient agreed to proceed with IV fentanyl. IV access was established, and labs were drawn. The patient was administered fentanyl 100 mcg and Zofran 4 mg IVP. She did require an additional dose of fentanyl 50 mcg prior to reduction. After allowing adequate time for analgesic effect, reduction was performed. It is noted that the patient had recurrent dislocations of the tibiotalar joint, which required constant traction being performed by me. Post reduction x-rays much better alignment of the fracture dislocation. An additional portable 2-view tib-fib did not show any proximal fractures. A portable chest x-ray was also ordered, performed and was unremarkable. Review of labs shows a mild hypokalemia, otherwise remaining labs were grossly normal. A preoperative ECG was also ordered but was not completed at the time of transfer of care at to the hospitalist service. Contact was made with [facility] (Dr. King and Main Adams PA-C). Dr. Rivera celeste reviewed x-rays, and recommended admission for surgical management. The case was further discussed with the [facility] hospitalist service, who has agreed with admission. Please see their dictation and orthopedic dictations for further treatment and final disposition. While awaiting for hospitalist and orthopedic evaluation, the patient did complain of worsening ankle pain with tingling into her foot and toes. I did repeat x-ray imaging of the ankle to show only a mild subluxation of the tibiotalar joint. It is noted that the patient has maintained neurovascular status throughout her ED evaluation. I did recommend trying a low-dose of morphine to give the patient a more steady state pain control, and she was in agreement. She was administered morphine 2 mg IVP without adverse reaction. The case was also discussed with Dr. Herndon, ED attending physician, who agrees with work-up provided and admission for surgical management. Administered Medications Insulin Aspart (Insulin Aspart Per Unit) 0 units SC ACHS [facility] Stop: 11/24/22 18:04 Last Admin: 10/25/22 19:25 Dose: Not Given Documented By: PRIYANKA Co-signed By: DP Discontinued Medications Acetaminophen (Acetaminophen 500 Mg Tab) 1,000 mg PO Q8H BEBE Stop: 10/25/22 18:06 Last Admin: 10/25/22 19:32 Dose: 1,000 mg Documented By: PRIYANKA Fentanyl Citrate (Fentanyl Citrate 100 Mcg/2 Ml Vial) 100 mcg IV NOW [facility] Stop: 10/25/22 11:26 Last Admin: 10/25/22 12:07 Dose: 100 mcg Documented By: QGV Fentanyl Citrate (Fentanyl Citrate 100 Mcg/2 Ml Vial) 50 mcg IV NOW STA Stop: 10/25/22 12:57 Last Admin: 10/25/22 13:07 Dose: 50 mcg Documented By: QGV Fentanyl Citrate (Fentanyl Citrate 100 Mcg/2 Ml Vial) 50 mcg IV NOW STA Stop: 10/25/22 13:25 Last Admin: 10/25/22 13:25 Dose: 50 mcg Documented By: QGV Morphine Sulfate (Morphine Sulfate 2 Mg/Ml Carp) 2 mg IV NOW STA Stop: 10/25/22 13:21 Last Admin: 10/25/22 13:34 Dose: 2 mg Documented By: QGV Ondansetron HCl (Ondansetron Inj 2 Mg/Ml 2 Ml Vial) 4 mg IV NOW STA Stop: 10/25/22 11:26 Last Admin: 10/25/22 12:07 Dose: 4 mg Documented By: QGV Oxycodone HCl (Oxycodone Hcl Ir 5 Mg Tab (Immediate Release)) 5 mg PO NOW STA Stop: 10/25/22 15:27 Last Admin: 10/25/22 16:26 Dose: 5 mg Documented By: NIKO Potassium Chloride (Potassium Chloride Crtab 20 Meq Tabcr) 40 meq PO NOW STA Stop: 10/25/22 15:27 Last Admin: 10/25/22 16:26 Dose: 40 meq Documented By: NIKO Potassium Chloride (Potassium Chloride Crtab 20 Meq Tabcr) 40 meq PO PM ONE Stop: 10/25/22 20:01 Last Admin: 10/25/22 19:32 Dose: 40 meq Documented By: PRIYANKA Medical Decision Making Medical Records Attestation: I reviewed the patient's medical records. Home Medications was personally reviewed by me Laboratory Data Attestation: I reviewed the patient's lab results. 10/25/22 11:38 10/25/22 11:38 Lab Results 10/25/22 10/25/22 10/25/22 Range/Units 11:38 11:38 11:38 WBC 10.19 (4.8-10.8) K/ul RBC 4.34 (3.93-5.22) M/uL Hgb 11.7 L (12.0-16.0) g/dl Hct 36.0 (34.1-44.9) % MCV 82.9 (80.0-100.0) fL MCH 27.0 (25.0-34.0) pg MCHC 32.5 (32.0-36.0) g/dL RDW Std Deviation 44.6 (36.4-46.3) fL RDW Coeff of Onel 14.6 H (11.5-14.5) % Plt Count 275 (130-400) K/uL MPV 10.8 (9.4-12.3) fL Sodium 141 (136-145) mmol/L Potassium 3.1 L (3.5-5.1) mmol/L Chloride 107 (98-107) mmol/L Carbon Dioxide 25 (21-32) mmol/L Anion Gap 9 (3-11) BUN 11 (6-23) mg/dl Creatinine 0.71 (0.6-1.2) mg/dl Est Cr Clr Drug Dosing 61.8 ml/min Est GFR ( Amer) 98.6 ml/min Est GFR (Non-Af Amer) 85.1 ml/min BUN/Creatinine Ratio 15.5 (10-20) Glucose 107 H (70-99(Fasting)) mg/dl Calcium 9.8 (8.5-10.1) mg/dl Magnesium 1.8 (1.7-2.4) mg/dl Imaging Data Attestation: I personally reviewed and interpreted this imaging study as follows: My Impression: My interpretation of initial x-rays of the right ankle confirms a trimalleolar ankle fracture dislocation, as described in the following radiologist report. My interpretation of postreduction x-rays shows improved alignment of the fracture dislocation. My interpretation of a two-view portable tib-fib x-ray does not show any proximal fractures. Radiologist's Impression: Ankle X-Ray 10/25/22 10:55 XR ankle RT min 3V routine HISTORY: 72 years-old Female pain acute pain of the right ankle status post trauma COMPARISON: None TECHNIQUE: 3 views of the right ankle FINDINGS: Acute fracture dislocation of the right ankle. Acute comminuted angulated and displaced distal fibular fracture with apex medial angulation. Medial malleolar fracture demonstrates several millimeters of lateral displacement. [place] volar angulation. Acute posterior malleolar fracture is also present. There is tibiotalar dislocation with apex medial angulation. The distal tibia is displaced 2.5 cm in relation to the talus. Demineralized appearance of the bones with mild to moderate osteoarthritis. IMPRESSION: Acute fracture dislocation of the ankle as above. ACT 112: Negative or not required by law. The above report was generated using voice recognition software. It may contain grammatical, syntax or spelling errors. Electronically signed by: Rodrigue Jordan M.D. 10/25/2022 11:38 AM Ankle X-Ray 10/25/22 12:19 XR ankle RT min 3V routine, XR tibia fibula RT 2V CLINICAL HISTORY: Postreduction xray. Fall. Right ankle fracture. COMPARISON STUDY: Right ankle 10/25/2022. FINDINGS: Interval reduction of the trimalleolar right ankle fracture which demonstrates improved anatomic alignment. There is persistent posterior and lateral displacement of up to 6 mm. This results in mild lateral subluxation of the talus in relation to the distal tibia. There is diffuse soft tissue swelling within the right ankle. The bones are osteopenic. The proximal tibia and proximal fibula appear intact. IMPRESSION: 1. Status post reduction of the right ankle trimalleolar fracture/dislocation with improved anatomic alignment as described above. 2. The proximal tibia and proximal fibula appear intact. ACT 112: Negative or not required by law. Electronically signed by: John Dhillon M.D. 10/25/2022 12:52 PM Chest X-Ray 10/25/22 12:19 XR chest 1V portable CLINICAL HISTORY: Pre-op TECHNIQUE: Single frontal radiograph of the chest was obtained. Comparison: Comparison is made to chest radiograph 09/12/2022 FINDINGS: Right humeral orthopedic hardware is seen. Calcified aortic knob is seen. The lungs are clear. No evidence of pleural effusion or pneumothorax. IMPRESSION: No acute chest disease. ACT 112: Negative or not required by law. Electronically signed by: Alexis Thurston M.D. 10/25/2022 12:51 PM Tibia/Fibula X-Ray 10/25/22 12:19 XR ankle RT min 3V routine, XR tibia fibula RT 2V CLINICAL HISTORY: Postreduction xray. Fall. Right ankle fracture. COMPARISON STUDY: Right ankle 10/25/2022. FINDINGS: Interval reduction of the trimalleolar right ankle fracture which demonstrates improved anatomic alignment. There is persistent posterior and lateral displacement of up to 6 mm. This results in mild lateral subluxation of the talus in relation to the distal tibia. There is diffuse soft tissue swelling within the right ankle. The bones are osteopenic. The proximal tibia and proxim al fibula appear intact. IMPRESSION: 1. Status post reduction of the right ankle trimalleolar fracture/dislocation with improved anatomic alignment as described above. 2. The proximal tibia and proximal fibula appear intact. ACT 112: Negative or not required by law. Electronically signed by: John Dhillon M.D. 10/25/2022 12:52 PM MDM Narrative See ED course for further details of today's visit. The patient presents with a trimalleolar ankle fracture dislocation that was reduced, showing significant tibiotalar instability with recurrent dislocation. I did have to provide constant traction with application of an ankle stirrup and posterior splint to maintain alignment. Orthopedics has agreed to admission with surgical management. The patient did require several rounds of analgesics. The patient does not have an open fracture. The patient has maintained neurovascular status throughout her ED visit while under my care. Impression Fracture dislocation of right ankle, Closed trimalleolar fracture of ankle, Fall from slipping on slippery surface Discharge Plan Visit Data Chief Complaint: Ankle Pain Stated Complaint: POSSIBLE RIGHT BROKEN ANKLE ED Provider: Chava Herndon ED Midlevel Provider: Georges Shepherd Discharge Problem: Fracture dislocation of right ankle, Closed trimalleolar fracture of ankle, Fall from slipping on slippery surface Patient Disposition: Admitted As Inpatient Discharge Instructions Interventions: ED Discharge Assessment Last Done: 10/25/22 18:07 : Fracture dislocation of right ankle Qualifiers: Encounter type: initial encounter Fracture type: closed Qualified Code(s): S82.891A - Other fracture of right lower leg, initial encounter for closed fracture Closed trimalleolar fracture of ankle Qualifiers: Encounter type: initial encounter Laterality: right Qualified Code(s): S82.851A - Displaced trimalleolar fracture of right lower leg, initial encounter for closed fracture Fall from slipping on slippery surface Qualifiers: Encounter type: initial encounter Qualified Code(s): W01.0XXA - Fall on same level from slipping, tripping and stumbling without subsequent striking against object, initial encounter
[2022-10-25 11:56] LABS: Hemoglobin 11.7 g/dl (12.0-16.0); Mean Corpuscular Hgb Conc 32.5 g/dL (32.0-36.0); Mean Corpuscular Volume 82.9 fL (80.0-100.0); Mean Platelet Volume 10.8 fL (9.4-12.3); Platelet Count 275 K/uL (130-400); RDW Coefficient of Variation 14.6 % (11.5-14.5); RDW Standard Deviation 44.6 fL (36.4-46.3); Red Blood Count 4.34 M/uL (3.93-5.22); White Blood Count 10.19 K/ul (4.8-10.8)
[2022-10-25 12:19] LABS: BUN Creatinine Ratio 15.5 (10-20); Calcium 9.8 mg/dl (8.5-10.1); Creatinine Clr Calc Pharmacy 61.8 ml/min; Est GFR (African American) 98.6 ml/min; Est GFR (Non-African American) 85.1 ml/min; Potassium 3.1 mmol/L (3.5-5.1)
--- NOTE | 2022-10-25 12:53 | XRay Report ---
XR chest 1V portable CLINICAL HISTORY: Pre-op TECHNIQUE: Single frontal radiograph of the chest was obtained. Comparison: Comparison is made to chest radiograph 09/12/2022 FINDINGS: Right humeral orthopedic hardware is seen. Calcified aortic knob is seen. The lungs are clear. No azucena dence of pleural effusion or pneumothorax. IMPRESSION: No acute chest disease. ACT 112: Negative or not required by law. Electronically signed by: Alexis Thurston M.D. 10/25/2022 12:51 PM
--- NOTE | 2022-10-25 12:53 | XRay Report ---
XR ankle RT min 3V routine, XR tibia fibula RT 2V CLINICAL HISTORY: Postreduction xray. Fall. Right ankle fracture. COMPARISON STUDY: Right ankle 10/25/2022. FINDINGS: Interval reduction of the trimalleolar right ankle fracture which demonstrates improved kb tomic alignment. There is persistent posterior and lateral displacement of up to 6 mm. This results i n mild lateral subluxation of the talus in relation to the distal tibia. There is diffuse soft tissue swelling within the right ankle. The bones are osteopenic. The proximal tibia and proximal fibula ap pear intact. IMPRESSION: 1. Status post reduction of the right ankle trimalleolar fracture/dislocation with improved anatomic alignment as described above. 2. The proximal tibia and proximal fibula appear intact. ACT 112: Negative or not required by law. Electronically signed by: John Dhillon M.D. 10/25/2022 12:52 PM
[2022-10-25] MEDS ORDERED: MoRPHine SULFATE 2 MG/ML CARP IV STA (13:20)
--- NOTE | 2022-10-25 13:56 | History & Physical Report ---
Date of Service October 25, 2022 Assessment & Plan (1) Closed trimalleolar fracture of right ankle: Plan: Patient is 72-year-old female with PMH HTN, dyslipidemia, prediabetes, RA, CHANTELLE, GERD presented to ER with complaint of mechanical fall and right ankle pain this morning. Initial Right Ankle Xray: Acute fracture dislocation of the right ankle. Acute comminuted angulated and displaced distal fibular fracture with apex medial angulation. Medial malleolar fracture demonstrates several millimeters of lateral displacement. [place] volar angulation. Acute posterior malleolar fracture is also present. There is tibiotalar dislocation with apex medial angulation. Th e distal tibia is displaced 2.5 cm in relation to the talus. -In ER patient given fentanyl and ankle was manually reduced with repeat right ankle x-ray: S/P reduction of the right ankle trimalleolar fracture/dislocation with improved anatomic alignment as described above. The proximal tibia and proximal fibula appear intact. -Ortho consult. ER spoke to vendor management consultant, Dr King recommended admission -NPO midnight -Pain control with Tylenol, oxycodone, Dilaudid as needed -Bowel regimen -Nonweightbearing right leg -Pre-op EKG ordered (2) Hypokalemia: Plan: K: 3.1 -Magnesium lab ordered and pending -Replace and monitor (3) Hypertension: Plan: Stable -Continue diltiazem (4) Hyperlipidemia: Plan: -Continue pravastatin (5) Prediabetes: Plan: A1c: 5.8 on 08/04/2022 as per outpatient chart review -Hold metformin -NovoLog sliding scale per protocol. Monitor BSG's, may need to further adjust (6) Sleep apnea: Plan: -Noncompliant with CPAP DVT Prophylaxis -SCDs Full Code as per discussion with pt Follows with Dr James Don for routine care Pt was seen and care coordinated with Dr Qureshi. See addendum I spent a total of 75 minutes reviewing notes, outpatient records, labs, medication, coordinating, documenting and providing care for this patient excluding time spent in the performance of separately billed services. History of Present Illness Chief Complaint: Fall, right ankle pain Primary Care Provider: Angella Gardner MD Patient is 72-year-old female with PMH HTN, dyslipidemia, prediabetes, RA, CHANTELLE, GERD presented to ER with complaint of fall and right ankle pain prior to ER arrival today. Patient states was walking and slipped on ice injuring her right ankle. Was unable to bear weight on ankle. In ER found to have dislocated right trimalleolar fracture. Initially after injury patient had numbness/tingling sensation to right foot and toes which has since resolved after reduction performed in ER today. Patient denies any symptoms prior to fall. Denies history of prior right ankle injury. Denies fever/chills, diaphoresis, N/V/D/C, REILLY, dizziness, syncope, neck pain, CP, SOB, cough, sore throat, rhinorrhea, abdominal pain, extremity weakness, extremity edema, rashes, urinary symptoms. Allergies Allergy/AdvReac Type Severity Reaction Status Date / Time morphine AdvReac Intermediate Nausea/Vomi Verified 09/13/22 08:20 ting Home Medications Medication Instructions Recorded Confirmed Type conjugated estrogens 0.625 mg/gram 1 applic vaginal DIRECTED PRN 11/17/18 10/25/22 History vaginal cream (Premarin) Menopausal Symptoms metformin 500 mg tablet 500 mg PO BID 11/17/18 10/25/22 History Lactobacills gasseri-Bifidobac 1 cap PO QAM 09/27/19 10/25/22 History bifidum,longum 1.5 billion cell capsule (Tag'By) cartilage 40 mg-collagen II-boron 1 tab PO QAM 09/27/19 10/25/22 History 5 mg-hyaluronate sod 3.3 mg tablet (Move Free Ultra Triple Action (boron)) coenzyme Q10 30 mg capsule (CoQ-10) 0 mg PO QAM 09/27/19 10/25/22 History famotidine 20 mg tablet 20 mg PO HS PRN Heartburn 09/27/19 10/25/22 History vit C 250 mg-vit E 90 mg-zinc 40 1 tab PO BID 09/27/19 10/25/22 History mg-copper 1 nf-xbllfk-fareef capsule (PreserVision AREDS-2) diclofenac sodium 1 % topical gel 2 g topical QID PRN Pain 08/23/22 10/25/22 History docusate sodium 100 mg capsule 100 mg PO BID 08/23/22 10/25/22 History diltiazem HCl 180 mg 180 mg PO DAILY 10/25/22 10/25/22 History capsule,extended release 24 hr pantoprazole 40 mg tablet,delayed 40 mg PO DAILY 10/25/22 10/25/22 History release pravastatin 40 mg tablet 40 mg PO HS 10/25/22 10/25/22 History Past Med/Surg History Medical History Chronic back pain Degenerative disc disease Diabetes mellitus, type 2 NIDDM GERD (gastroesophageal reflux disease) Hiatal hernia History of palpitations resolved Hyperlipidemia Hypertension follows w/ Razia Aguirre- [facility] - last visit spring 2021 Kidney stones Macular degeneration LEFT EYE Osteoarthritis Prediabetes Sleep apnea no longer using device Surgical History Fusion of spine C3-C4 (NO ROM LIMITATIONS PER PATIENT) H/O vaginal surgery ANTERIOR AND POSTERIOR REPAIR History of appendectomy History of carpal tunnel release RIGHT History of colonoscopy History of esophagogastroduodenoscopy (EGD) History of lithotripsy History of tonsillectomy Hx of cystoscopy Hx of shoulder surgery ORIF RIGHT S/P laparotomy 2/2 TUBAL (+RSO) Family History Mother FHx: Hodgkin's disease Father Heart disease Social History Smoking Status: Never smoker Second Hand Exposure: No; Hx Alcohol Use: No Hx Substance Use: No Preferred Language: Peruvian Communication Ability: Effective Od Grinder Operator Required: No Beliefs That Will Affect Care: None marital status: Current Living Situation: Spouse Current Living Situation Comment: [facility] Feels Safe at Home: Yes Assistive Devices: Denture - Upper and Glasses Review of Systems Review of Systems: All systems reviewed & are unremarkable except as noted in HPI & below Physical Exam Physical Exam: General: no acute distress, WDWN Head: normocephalic, atraumatic Eyes: conjunctiva non-injected, anicteric ENT: normal inspection external ears, nose, mucous membranes moist Neck: supple, trachea midline Lungs: clear, no respiratory distress, no wheezing/rhonchi/rales CV: RRR, no murmur, no pretibial edema Abd: normal BS, soft, non-tender Ext: BUE: normal appearance with ROM intact. LLE: normal appearance, ROM intact. RLE: +splint to right lower leg in place. Neuro: A&O x 3, no focal deficits noted, normal affect Skin: warm, dry Results & Data Results & Data ([place]) Vital Signs (Past 12 Hours) Vital Signs Temp Pulse Pulse Resp BP BP Pulse Ox 10/25/22 12:11 72 20 149/79 H 97 10/25/22 10:55 36.3 C L 75 18 135/66 98 O2 Del Method 10/25/22 12:11 Room Air 10/25/22 10:55 Room Air Laboratory Results Short CBC 10/25/22 Range/Units 11:38 WBC 10.19 (4.8-10.8) K/ul Hgb 11.7 L (12.0-16.0) g/dl Hct 36.0 (34.1-44.9) % Plt Count 275 (130-400) K/uL BMP 10/25/22 11:38 Sodium 141 Potassium 3.1 L Chloride 107 Carbon Dioxide 25 BUN 11 Creatinine 0.71 Glucose 107 H Calcium 9.8 Diagnostic Findings Ankle X-Ray 10/25/22 10:55 XR ankle RT min 3V routine HISTORY: 72 years-old Female pain acute pain of the right ankle status post trauma COMPARISON: None TECHNIQUE: 3 views of the right ankle FINDINGS: Acute fracture dislocation of the right ankle. Acute comminuted angulated and displaced distal fibular fracture with apex medial angulation. Medial malleolar fracture demonstrates several millimeters of lateral displacement. [place] volar angulation. Acute posterior malleolar fracture is also present. There is tibiotalar dislocation with apex medial angulation. The distal tibia is displaced 2.5 cm in relation to the talus. Demineralized appearance of the bones with mild to moderate osteoarthritis. IMPRESSION: Acute fracture dislocation of the ankle as above. ACT 112: Negative or not required by law. The above report was generated using voice recognition software. It may contain grammatical, syntax or spelling errors. Electronically signed by: Rodrigue Jordan M.D. 10/25/2022 11:38 AM Ankle X-Ray 10/25/22 12:19 XR ankle RT min 3V routine, XR tibia fibula RT 2V CLINICAL HISTORY: Postreduction xray. Fall. Right ankle fracture. COMPARISON STUDY: Right ankle 10/25/2022. FINDINGS: Interval reduction of the trimalleolar right ankle fracture which demonstrates improved anatomic alignment. There is persistent posterior and lateral displacement of up to 6 mm. This results in mild lateral subluxation of the talus in relation to the distal tibia. There is diffuse soft tissue swelling within the right ankle. The bones are osteopenic. The proximal tibia and proximal fibula appear intact. IMPRESSION: 1. Status post reduction of the right ankle trimalleolar fracture/dislocation with improved anatomic alignment as described above. 2. The proximal tibia and proximal fibula appear intact. ACT 112: Negative or not required by law. Electronically signed by: John Dhillon M.D. 10/25/2022 12:52 PM Chest X-Ray 10/25/22 12:19 XR chest 1V portable CLINICAL HISTORY: Pre-op TECHNIQUE: Single frontal radiograph of the chest was obtained. Comparison: Comparison is made to chest radiograph 09/12/2022 FINDINGS: Right humeral orthopedic hardware is seen. Calcified aortic knob is seen. The lungs are clear. No evidence of pleural effusion or pneumothorax. IMPRESSION: No acute chest disease. ACT 112: Negative or not required by law. Electronically signed by: Alexis Thurston M.D. 10/25/2022 12:51 PM Tibia/Fibula X-Ray 10/25/22 12:19 XR ankle RT min 3V routine, XR tibia fibula RT 2V CLINICAL HISTORY: Postreduction xray. Fall. Right ankle fracture. COMPARISON STUDY: Right ankle 10/25/2022. FINDINGS: Interval reduction of the trimalleolar right ankle fracture which demonstrates improved anatomic alignment. There is persistent posterior and lateral displacement of up to 6 mm. This results in mild lateral subluxation of the talus in relation to the distal tibia. There is diffuse soft tissue swelling within the right ankle. The bones are osteopenic. The proximal tibia and proximal fibula appear intact. IMPRESSION: 1. Status post reduction of the right ankle trimalleolar fracture/dislocation with improved anatomic alignment as described above. 2. The proximal tibia and proximal fibula appear intact. ACT 112: Negative or not required by law. Electronically signed by: John Dhillon M.D. 10/25/2022 12:52 PM Ankle X-Ray 10/25/22 14:14 RIGHT ANKLE 2 VIEWS CLINICAL HISTORY: Postreduction examination. FINDINGS: AP and crosstable lateral views of the right ankle are compared to study performed earlier the same day 10/25/2022. The examination is performed through a cast, obscuring fine bony detail. The skeletal structures are osteopenic. Again seen is a trimalleolar fracture of the ankle joint. There is persistent widening of the medial joint space which measures up to 6 mm. There is also dorsal displacement of the talus at the tibiotalar articulation by approximately 9 mm. There is associated joint effusion. Overlying soft tissue edema is observed. IMPRESSION: 1. Trimalleolar ankle fracture is again noted. 2. There is persistent widening of the medial joint space as well as mild dorsal displacement of the talus. Electronically signed by: Dimitry Albright M.D. 10/25/2022 2:57 PM Supervising Physician Co-Signing Physician Notes I have seen and examined the patient and have discussed the case with the provider above. I agree with the assessment and plan as stated. The patient is a 72-year-old female who suffered a mechanical fall with closed trimalleolar fracture of the right ankle. She will require an ORIF of her right ankle per orthopedics which will be done within the next 48 hours. She has a soft cast in place and is reporting pain that is uncontrolled. She otherwise denies any chest pain, shortness of breath and reports frequently going shopping without any issues with exertion or activity. She is a diabetic on metformin that is well controlled with a hemoglobin A1c of 5.8 in 08/04/2022. She has no reported history of cardiac disease, stroke or kidney disease. She denies any issues with blood clots in the past and denies any issues with anesthesia in the past. On physical exam she is in no acute distress. Lungs are clear to auscultation throughout. Cardiac exam reveals S1/S2 with regular rate and rhythm heard and no murmurs, gallops or rubs. Abdomen is soft nontender nondistended. Extremities are warm and well-perfused. Soft cast in place on right ankle. Skin is warm and dry. No gross neurologic deficits. Work-up today includes a CBC within normal limits, normal chemistry aside from potassium 3.1 which was replaced. Magnesium that was 1.8. Ankle x-ray revealed trimalleolar ankle fracture with persistent widening of the medial joint space as well as mild dorsal displacement of the talus. Preoperative chest x-ray reveals no acute chest disease. Overall this is a 72-year-old female status post mechanical fall with ankle fracture requiring surgery. She appears to have good functional status and acceptable risk to proceed with surgery at this point. Standard DVT prophylaxis is recommended. We will continue efforts for pain control as needed. Defer to orthopedics for PT OT recommendations postoperatively. DO Titus
--- NOTE | 2022-10-25 14:58 | XRay Report ---
RIGHT ANKLE 2 VIEWS CLINICAL HISTORY: Postreduction examination. FINDINGS: AP and crosstable lateral views of the right ankle are compared to study performed earlier the same day 10/25/2022. The examination is performed through a cast, obscuring fine bony detail. The skeletal structures are osteopenic. Again seen is a trimalleolar fracture of the ankle joint. There i s persistent widening of the medial joint space which measures up to 6 mm. There is also dorsal displ acement of the talus at the tibiotalar articulation by approximately 9 mm. There is associated joint effusion. Overlying soft tissue edema is observed. IMPRESSION: 1. Trimalleolar ankle fracture is again noted. 2. There is persistent widening of the medial joint space as well as mild dorsal displacement of the talus. Electronically signed by: Dimitry Albright M.D. 10/25/2022 2:57 PM
[2022-10-25] MEDS ORDERED: POTASSIUM CHLORIDE CRTAB 20 MEQ TABCR PO STA (15:26)
[2022-10-25] MEDS ORDERED: oxyCODONE HCL IR 5 MG TAB (IMMEDIATE RELEASE) PO STA (15:26)
[2022-10-25] MEDS ORDERED: HYDROmorphone INJ 0.5 MG/0.5 ML SYR IV PRN ×2 (16:24→18:05)
--- NOTE | 2022-10-25 16:32 | Orthopedic Consultation ---
Date of Consultation October 25, 2022 Assessment & Plan (1) Closed trimalleolar fracture of right ankle: X-rays reviewed. Patient will require ORIF of her right ankle. I have discussed the case with Dr. Recio. This will tentatively be done on . I have discussed with the patient that she needs to be keeping the right lower extremity elevated on at least 2 pillows and we will continue to put ice on the right ankle. Orders have been placed for this. Plan for OR later this week. Supervising Physician Co-Signing Physician Notes Patient seen and examined. Agree with KLEVER Adams's note as above. Patient with a right ankle trimalleolar ankle fracture dislocation. Posterior malleolar fragment looks relatively small and involves less than 10% of the articular surface. No obvious syndesmotic disruption. I will therefore plan for fixation of the distal fibula and medial malleolus. Not planning for posterior malleolar fixation or syndesmotic fixation. This will be further evaluated intraoperatively. I would highly recommend surgical stabilization of this unstable ankle injury, and patient is in agreement. Risks, benefits, and alternatives of surgery were explained in detail. The surgical procedure, as well as postoperative recovery and rehabilitation, was also explained in detail. Risks include bleeding; infection; damage to surrounding structures such as nerves, blood vessels, and tendons that run in the area; persistent pain or stiffness; nonunion; malunion; hardware failure; post-traumatic arthritis; painful prominent hardware requiring removal; or need for further surgery. The patient understands all of this and wishes to proceed with surgery. Informed consent was obtained. History of Present Illness Reason for Consultation: Right trimalleolar ankle fracture History of Present Illness Patient is a 72-year-old female who came to the emergency room today after slipping on the ice. Patient states that as she was ambulating today, she slipped on the ice and fell to the ground. She had immediate pain in her right ankle and noticed some deformity. She was unable to ambulate and was brought to the emergency room. She was seen by the staff and x-rays were taken. It was found that she had a displaced trimalleolar ankle fracture. The ankle was then reduced and placed in a posterior splint. It was noted at that time by Rudy Shepherd PA-C that the ankle was fairly unstable and had to be held rigid while the splint was put on. Patient was having pain control issues initially and was unable to go home and was admitted by the hospitalist service. We have been asked to take care of her right ankle fracture. Currently she appears comfortable in her bed. She states that she is having pain off and on. She does not feel she could return home and manage the pain at home until seen in the office. She otherwise has no other complaints. Allergies Allergy/AdvReac Type Severity Reaction Status Date / Time morphine AdvReac Intermediate Nausea/Vomi Verified 09/13/22 08:20 ting Home Medications Medication Instructions Recorded Confirmed Type conjugated estrogens 0.625 mg/gram 1 applic vaginal DIRECTED PRN 11/17/18 10/25/22 History vaginal cream (Premarin) Menopausal Symptoms metformin 500 mg tablet 500 mg PO BID 11/17/18 10/25/22 History Lactobacills gasseri-Bifidobac 1 cap PO QAM 09/27/19 10/25/22 History bifidum,longum 1.5 billion cell capsule (NMRKT) cartilage 40 mg-collagen II-boron 1 tab PO QAM 09/27/19 10/25/22 History 5 mg-hyaluronate sod 3.3 mg tablet (Move Free Ultra Triple Action (boron)) coenzyme Q10 30 mg capsule (CoQ-10) 0 mg PO QAM 09/27/19 10/25/22 History famotidine 20 mg tablet 20 mg PO HS PRN Heartburn 09/27/19 10/25/22 History vit C 250 mg-vit E 90 mg-zinc 40 1 tab PO BID 09/27/19 10/25/22 History mg-copper 1 [id number]-jzlmcz capsule (PreserVision AREDS-2) diclofenac sodium 1 % topical gel 2 g topical QID PRN Pain 08/23/22 10/25/22 History docusate sodium 100 mg capsule 100 mg PO BID 08/23/22 10/25/22 History diltiazem HCl 180 mg 180 mg PO DAILY 10/25/22 10/25/22 History capsule,extended release 24 hr pantoprazole 40 mg tablet,delayed 40 mg PO DAILY 10/25/22 10/25/22 History release pravastatin 40 mg tablet 40 mg PO HS 10/25/22 10/25/22 History Patient History Medical History (Updated 10/27/22 @ 08:03 by Grant Briggs MD) Chronic back pain Degenerative disc disease Diabetes mellitus, type 2 NIDDM GERD (gastroesophageal reflux disease) Hiatal hernia History of palpitations resolved Hyperlipidemia Hypertension follows w/ Razia Aguirre- [facility] - last visit spring 2021 Kidney stones Macular degeneration LEFT EYE Osteoarthritis Sleep apnea no longer using device Surgical History Fusion of spine C3-C4 (NO ROM LIMITATIONS PER PATIENT) H/O vaginal surgery ANTERIOR AND POSTERIOR REPAIR History of appendectomy History of carpal tunnel release RIGHT History of colonoscopy History of esophagogastroduodenoscopy (EGD) History of lithotripsy History of tonsillectomy Hx of cystoscopy Hx of shoulder surgery ORIF RIGHT S/P laparotomy 2/2 TUBAL (+RSO) Family History Mother FHx: Hodgkin's disease Father Heart disease Social History Smoking Status: Never smoker Second Hand Exposure: No; Do You Dip or Chew Tobacco: No; Hx Alcohol Use: No Hx Substance Use: No Preferred Language: Belarusian Communication Ability: Effective Brass Cleaner Required: No Beliefs That Will Affect Care: None marital status: Current Living Situation: Spouse Current Living Situation Comment: [facility] Feels Safe at Home: Yes Safety Concerns: Feels Safe At This Time Assistive Devices: None Physical Exam Physical Exam: 72-year-old white female who appears her stated age. Alert and oriented x3. No acute distress. Pleasant and cooperative. On examination of her right lower extremity, it is in a posterior splint with medial lateral gutter splint applied. Toes are pink and warm. She has good range of motion of the toes. Toes are pink and warm. Cap refills less than 2 seconds. Sensation is intact. Denies pain in the right knee or right hip. Left lower extremity and bilateral upper extremities are unaffected at this time and range of motion is within normal limits. She denies any increased cervical, thoracic, low back pain. There is no gross motor or sensory loss at this time. Results & Data ([facility]) Vital Signs (Past 12 Hours) Vital Signs Temp Pulse Pulse Resp BP BP Pulse Ox 10/25/22 12:11 72 20 149/79 H 97 10/25/22 10:55 36.3 C L 75 18 135/66 98 O2 Del Method 10/25/22 12:11 Room Air 10/25/22 10:55 Room Air Laboratory Results Laboratory Results WBC 10.19 K/ul (4.8-10.8) 10/25/22 11:38 RBC 4.34 M/uL (3.93-5.22) 10/25/22 11:38 Hgb 11.7 g/dl (12.0-16.0) L 10/25/22 11:38 Hct 36.0 % (34.1-44.9) 10/25/22 11:38 MCV 82.9 fL (80.0-100.0) 10/25/22 11:38 MCH 27.0 pg (25.0-34.0) 10/25/22 11:38 MCHC 32.5 g/dL (32.0-36.0) 10/25/22 11:38 RDW Std Deviation 44.6 fL (36.4-46.3) 10/25/22 11:38 RDW Coeff of Onel 14.6 % (11.5-14.5) H 10/25/22 11:38 Plt Count 275 K/uL (130-400) 10/25/22 11:38 MPV 10.8 fL (9.4-12.3) 10/25/22 11:38 Sodium 141 mmol/L (136-145) 10/25/22 11:38 Potassium 3.1 mmol/L (3.5-5.1) L 10/25/22 11:38 Chloride 107 mmol/L (98-107) 10/25/22 11:38 Carbon Dioxide 25 mmol/L (21-32) 10/25/22 11:38 Anion Gap 9 (3-11) 10/25/22 11:38 BUN 11 mg/dl (6-23) 10/25/22 11:38 Creatinine 0.71 mg/dl (0.6-1.2) 10/25/22 11:38 Est Cr Clr Drug Dosing 61.8 ml/min 10/25/22 11:38 Est GFR ( Amer) 98.6 ml/min 10/25/22 11:38 Est GFR (Non-Af Amer) 85.1 ml/min 10/25/22 11:38 BUN/Creatinine Ratio 15.5 (10-20) 10/25/22 11:38 Glucose 107 mg/dl (70-99(Fasting)) H 10/25/22 11:38 Calcium 9.8 mg/dl (8.5-10.1) 10/25/22 11:38 Magnesium 1.8 mg/dl (1.7-2.4) 10/25/22 11:38 SARS-CoV-2, RNA, NAAT NEGATIVE (NEGATIVE) 10/25/22 15:15 Impressions Tibia/Fibula X-Ray 10/25/22 12:19 XR ankle RT min 3V routine, XR tibia fibula RT 2V CLINICAL HISTORY: Postreduction xray. Fall. Right ankle fracture. COMPARISON STUDY: Right ankle 10/25/2022. FINDINGS: Interval reduction of the trimalleolar right ankle fracture which demonstrates improved anatomic alignment. There is persistent posterior and lateral displacement of up to 6 mm. This results in mild lateral subluxation of the talus in relation to the distal tibia. There is diffuse soft tissue swelling within the right ankle. The bones are osteopenic. The proximal tibia and proximal fibula appear intact. IMPRESSION: 1. Status post reduction of the right ankle trimalleolar fracture/dislocation with improved anatomic alignment as described above. 2. The proximal tibia and proximal fibula appear intact. ACT 112: Negative or not required by law. Electronically signed by: John Dhillon M.D. 10/25/2022 12:52 PM Ankle X-Ray 10/25/22 14:14 RIGHT ANKLE 2 VIEWS CLINICAL HISTORY: Postreduction examination. FINDINGS: AP and crosstable lateral views of the right ankle are compared to study performed earlier the same day 10/25/2022. The examination is performed through a cast, obscuring fine bony detail. The skeletal structures are osteopenic. Again seen is a trimalleolar fracture of the ankle joint. There is persistent widening of the medial joint space which measures up to 6 mm. There is also dorsal displacement of the talus at the tibiotalar articulation by approximately 9 mm. There is associated joint effusion. Overlying soft tissue edema is observed. IMPRESSION: 1. Trimalleolar ankle fracture is again noted. 2. There is persistent widening of the medial joint space as well as mild dorsal displacement of the talus. Electronically signed by: Dimitry Albright M.D. 10/25/2022 2:57 PM
[2022-10-25] MEDS ORDERED: MAGNESIUM HYDROXIDE SUSP 30 ML UDC PO PRN (18:05)
[2022-10-25] MEDS ORDERED: ACETAMINOPHEN 500 MG TAB PO SCH (18:05)
[2022-10-25] MEDS ORDERED: FAMOTIDINE 20 MG TAB PO PRN (18:05)
[2022-10-25] MEDS ORDERED: GLUCOSE 40% GEL 15 GM TUBE PO PRN (18:05)
[2022-10-25] MEDS ORDERED: ONDANSETRON INJ 2 MG/ML 2 ML VIAL IV PRN (18:05)
[2022-10-25] MEDS ORDERED: CARBOHYDRATES FOR HYPOGLYCEMIA PO PRN (18:05)
[2022-10-25] MEDS ORDERED: GLUCOSE 10 TAB/TUBE PO PRN (18:05)
[2022-10-25] MEDS ORDERED: NALOXONE HCL 0.4 MG/1 ML VIAL/CARP IV PRN (18:05)
[2022-10-25] MEDS ORDERED: DEXTROSE 50% 50 ML SYRINGE IV PRN (18:05)
[2022-10-25] MEDS ORDERED: POLYETHYLENE (MIRALAX) 17 GM PACK PO PRN (18:05)
[2022-10-25] MEDS ORDERED: GLUCAGON FOR INJ 1 MG VIAL SQ PRN (18:05)
[2022-10-25] MEDS: INSULIN ASPART PER UNIT SC SCH ×2 (19:25→21:41)
[2022-10-25] MEDS ORDERED: POTASSIUM CHLORIDE CRTAB 20 MEQ TABCR PO ONE (20:00)
[2022-10-25] MEDS ORDERED: DOCUSATE SODIUM 100 MG CAP PO SCH (21:00)
[2022-10-25] MEDS: PRAVASTATIN SOD 40 MG TAB PO SCH (21:14)
[2022-10-26] MEDS: ACETAMINOPHEN 500 MG TAB PO SCH ×3 (01:42→18:44)
[2022-10-26] MEDS: oxyCODONE HCL IR 5 MG TAB (IMMEDIATE RELEASE) PO PRN ×3 (07:38→19:54)
[2022-10-26] MEDS: dilTIAZem HCL 180 MG CAPCR PO SCH (07:40)
[2022-10-26] MEDS: PANTOprazole 40 MG TAB PO SCH (07:40)
[2022-10-26] MEDS: DOCUSATE SODIUM 100 MG CAP PO SCH ×2 (07:51→19:59)
[2022-10-26 08:04] LABS: Hematocrit (blood only) 34.2 % (34.1-44.9); Hemoglobin 10.7 g/dl (12.0-16.0); Mean Corpuscular Hemoglobin 26.7 pg (25.0-34.0); Mean Corpuscular Hgb Conc 31.3 g/dL (32.0-36.0); Mean Corpuscular Volume 85.3 fL (80.0-100.0); Mean Platelet Volume 10.6 fL (9.4-12.3); Platelet Count 241 K/uL (130-400); RDW Coefficient of Variation 14.8 % (11.5-14.5); RDW Standard Deviation 46.5 fL (36.4-46.3); Red Blood Count 4.01 M/uL (3.93-5.22); White Blood Count 6.53 K/ul (4.8-10.8)
[2022-10-26] MEDS: INSULIN ASPART PER UNIT SC SCH ×4 (08:32→20:54)
[2022-10-26 08:43] LABS: BUN Creatinine Ratio 13.4 (10-20); Calcium 8.7 mg/dl (8.5-10.1); Creatinine Clr Calc Pharmacy 65.5 ml/min; Est GFR (African American) 101.8 ml/min; Est GFR (Non-African American) 87.8 ml/min; Magnesium 1.9 mg/dl (1.7-2.4); Potassium 3.9 mmol/L (3.5-5.1)
--- NOTE | 2022-10-26 11:02 | Hospitalist Progress Note ---
Date of Service October 26, 2022 Assessment & Plan (1) Closed trimalleolar fracture of right ankle: Plan: Patient is 72-year-old female with PMH HTN, dyslipidemia, prediabetes, RA, CHANTELLE, GERD presented to ER with complaint of mechanical fall and right ankle pain this morning. Initial Right Ankle Xray: Acute fracture dislocation of the right ankle. Acute comminuted angulated and displaced distal fibular fracture with apex medial angulation. Medial malleolar fracture demonstrates several millimeters of lateral displacement. [place] volar angulation. Acute posterior malleolar fracture is also present. There is tibiotalar dislocation with apex medial angulation. T he distal tibia is displaced 2.5 cm in relation to the talus. -In ER patient given fentanyl and ankle was manually reduced with repeat right ankle x-ray: S/P reduction of the right ankle trimalleolar fracture/dislocation with improved anatomic alignment as described above. The proximal tibia and proximal fibula appear intact. Patient to undergo surgical fixation 10/27/22 Will be NPO after midnight continue pain meds of scheduled APAP, prn dilaudid and oxy with appropriate pain scales bowel regimen - routine colace bid pt states she does not do well with morphine in past NWB to RLE EKG 75 nsr- nonspecific t waves in lateral leads, similar to ecg from 10/2018, CXR no acute disease Pt with good functional status at baseline and acceptable surgical risk (2) Hypokalemia: Plan: K: 3.1 on admission replaced, K normal today, 3.9 (3) Hypertension: Plan: Bp controlled, 132/77 Continue diltiazem (4) Hyperlipidemia: Plan: Continue pravastatin (5) Prediabetes: Plan: A1c: 5.8 on 08/04/2022 as per outpatient chart review Hold metformin NovoLog sliding scale per protocol. Monitor BSG's, may need to further adjust glucose adequate, 99 and 107 - will continue to monitor (6) Sleep apnea: Plan: Noncompliant with CPAP DVT Prophylaxis -SCDs Full Code as per discussion with pt Follows with Dr James Don for routine care Pt was seen and care coordinated with Dr Garnett. See addendum A total of 40 minutes was spent with greater than 50% of that time face to face with the patient, personally reviewing all current laboratories, imaging studies, past medication reconciliation, outpatient chart review, and discussion with specialists to collaborate care for the patient with attending. Please see attending documentation for corrections and/or additions. Admission and Anticipated Discharge Date Admission Date: October 25, 2022 Supervising Physician Co-Signing Physician Notes Patient is seen and examined at bedside. States having right ankle pain with movement but otherwise minimal discomfort. Denies any chest pain, shortness, dizziness, nausea, abdominal pain. On exam patient is moderately built and nourished, no apparent distress, normocephalic atraumatic, EOMI, normal breath sounds, clear to auscultation, S1-S2, no murmur, right lower extremity in dressing, no pedal edema, abdomen soft, nontender, normal bowel sounds, alert, awake, oriented, grossly no focal deficits. Patient is being managed for Age- related osteoporosis with possible pathologic fracture, right ankle. S/P reduction of the right ankle. Plan for surgery tomorrow. Bowel regimen to prevent constipation. Pain control. PT OT when appropriate. Appreciate orthopedics input. Agree with monitoring for hypokalemia and replacing electrolytes as needed. I personally reviewed the record. Patient is interviewed and examined at bedside. Patient's care is coordinated with Smiley Marques. Please refer to the documentation above for details of patient's presentation and for discussion of other issues. Subjective Patient was seen and examined in room 388-2. Follow up R ankle fracture. No acute concerns this morning. Didn't sleep well last night because of pain. Denies f/c/s, chest pain, sob, n/v/d. Pain 8/10 right now. Slightly improved with oxycodone. Plan for OR tomorrow. Review of Systems Review of Systems: All systems reviewed & are unremarkable except as noted in HPI & below Physical Exam Physical Exam: Gen: WD/WN, NAD, A&O x3 HEENT: Normocephalic, atraumatic, conjunctivae moist, sclerae anicteric, mucous membranes moist. Lung: Clear to Auscultation bilaterally, no wheezes/rales/rhonchi Heart: Regular rate, regular rhythm, no murmurs, rubs, or gallops Abdomen: Soft, NT, ND +BS x 4 Extremities: No edema, right lower extremity splint in place, NVI distally Skin: Warm, no rash, negative turgor. Results & Data Results & Data ([facility]) Vital Signs (Past 12 Hours) Vital Signs Temp Pulse Resp BP Pulse Ox O2 Del Method 10/26/22 07:27 36.8 C 67 16 132/77 96 Room Air Laboratory Results Short CBC 10/25/22 10/26/22 Range/Units 11:38 07:15 WBC 10.19 6.53 (4.8-10.8) K/ul Hgb 11.7 L 10.7 L (12.0-16.0) g/dl Hct 36.0 34.2 (34.1-44.9) % Plt Count 275 241 (130-400) K/uL BMP 10/25/22 10/26/22 11:38 07:15 Sodium 141 140 Potassium 3.1 L 3.9 D Chloride 107 109 H Carbon Dioxide 25 28 BUN 11 9 Creatinine 0.71 0.67 Glucose 107 H 99 Calcium 9.8 8.7 Diagnostic Findings Ankle X-Ray 10/25/22 10:55 XR ankle RT min 3V routine HISTORY: 72 years-old Female pain acute pain of the right ankle status post trauma COMPARISON: None TECHNIQUE: 3 views of the right ankle FINDINGS: Acute fracture dislocation of the right ankle. Acute comminuted angulated and displaced distal fibular fracture with apex medial angulation. Medial malleolar fracture demonstrates several millimeters of lateral displacement. [place] volar angulation. Acute posterior malleolar fracture is also present. There is tibiotalar dislocation with apex medial angulation. The distal tibia is displaced 2.5 cm in relation to the talus. Demineralized appearance of the bones with mild to moderate osteoarthritis. IMPRESSION: Acute fracture dislocation of the ankle as above. ACT 112: Negative or not required by law. The above report was generated using voice recognition software. It may contain grammatical, syntax or spelling errors. Electronically signed by: Rodrigue Jordan M.D. 10/25/2022 11:38 AM Ankle X-Ray 10/25/22 12:19 XR ankle RT min 3V routine, XR tibia fibula RT 2V CLINICAL HISTORY: Postreduction xray. Fall. Right ankle fracture. COMPARISON STUDY: Right ankle 10/25/2022. FINDINGS: Interval reduction of the trimalleolar right ankle fracture which demonstrates improved anatomic alignment. There is persistent posterior and lateral displacement of up to 6 mm. This results in mild lateral subluxation of the talus in relation to the distal tibia. There is diffuse soft tissue swelling within the right ankle. The bones are osteopenic. The proximal tibia and proximal fibula appear intact. IMPRESSION: 1. Status post reduction of the right ankle trimalleolar fracture/dislocation with improved anatomic alignment as described above. 2. The proximal tibia and proximal fibula appear intact. ACT 112: Negative or not required by law. Electronically signed by: John Dhillon M.D. 10/25/2022 12:52 PM Chest X-Ray 10/25/22 12:19 XR chest 1V portable CLINICAL HISTORY: Pre-op TECHNIQUE: Single frontal radiograph of the chest was obtained. Comparison: Comparison is made to chest radiograph 09/12/2022 FINDINGS: Right humeral orthopedic hardware is seen. Calcified aortic knob is seen. The lungs are clear. No evidence of pleural effusion or pneumothorax. IMPRESSION: No acute chest disease. ACT 112: Negative or not required by law. Electronically signed by: Alexis Thurston M.D. 10/25/2022 12:51 PM Tibia/Fibula X-Ray 10/25/22 12:19 XR ankle RT min 3V routine, XR tibia fibula RT 2V CLINICAL HISTORY: Postreduction xray. Fall. Right ankle fracture. COMPARISON STUDY: Right ankle 10/25/2022. FINDINGS: Interval reduction of the trimalleolar right ankle fracture which demonstrates improved anatomic alignment. There is persistent posterior and lateral displacement of up to 6 mm. This results in mild lateral subluxation of the talus in relation to the distal tibia. There is diffuse soft tissue swelling within the right ankle. The bones are osteopenic. The proximal tibia and proximal fibula appear intact. IMPRESSION: 1. Status post reduction of the right ankle trimalleolar fracture/dislocation with improved anatomic alignment as described above. 2. The proximal tibia and proximal fibula appear intact. ACT 112: Negative or not required by law. Electronically signed by: Jonh Dhillon M.D. 10/25/2022 12:52 PM Ankle X-Ray 10/25/22 14:14 RIGHT ANKLE 2 VIEWS CLINICAL HISTORY: Postreduction examination. FINDINGS: AP and crosstable lateral views of the right ankle are compared to study performed earlier the same day 10/25/2022. The examination is performed through a cast, obscuring fine bony detail. The skeletal structures are osteopenic. Again seen is a trimalleolar fracture of the ankle joint. There is persistent widening of the medial joint space which measures up to 6 mm. There is also dorsal displacement of the talus at the tibiotalar articulation by approximately 9 mm. There is associated joint effusion. Overlying soft tissue edema is observed. IMPRESSION: 1. Trimalleolar ankle fracture is again noted. 2. There is persistent widening of the medial joint space as well as mild dorsal displacement of the talus. Electronically signed by: Dimitry Albright M.D. 10/25/2022 2:57 PM
[2022-10-26] MEDS: PRAVASTATIN SOD 40 MG TAB PO SCH (19:59)
[2022-10-27] MEDS ORDERED: Nursing to Pharmacy Communication SCH (00:45)
[2022-10-27] MEDS: ACETAMINOPHEN 500 MG TAB PO SCH ×3 (01:28→18:22)
[2022-10-27] MEDS: INSULIN ASPART PER UNIT SC SCH ×3 (06:01→18:22)
[2022-10-27 07:19] LABS: Hematocrit (blood only) 34.3 % (34.1-44.9); Hemoglobin 10.8 g/dl (12.0-16.0); Mean Corpuscular Hemoglobin 26.6 pg (25.0-34.0); Mean Corpuscular Hgb Conc 31.5 g/dL (32.0-36.0); Mean Corpuscular Volume 84.5 fL (80.0-100.0); Mean Platelet Volume 10.7 fL (9.4-12.3); Platelet Count 248 K/uL (130-400); Red Blood Count 4.06 M/uL (3.93-5.22); White Blood Count 7.39 K/ul (4.8-10.8)
[2022-10-27 07:51] LABS: Calcium 8.7 mg/dl (8.5-10.1)
[2022-10-27 07:57] LABS: BUN Creatinine Ratio 14.7 (10-20); Creatinine Clr Calc Pharmacy 58.5 ml/min; Est GFR (African American) 92.3 ml/min; Est GFR (Non-African American) 79.6 ml/min
--- NOTE | 2022-10-27 08:05 | Anesthesiology Consultation ---
Date of Service October 27, 2022 Assessment & Plan (1) Encounter for pre-operative examination: Chart Review Chart Review: Acceptable Risk for Surgery History Surgery Operation Date: 10/27/22 07:00 Proposed Procedures p RIght Open Reduction Internal Fixation Ankle - Jose Recio M.D. Height/Weight Height: 5 ft 4 in Weight: 63.4 kg Allergies Allergy/AdvReac Type Severity Reaction Status Date / Time morphine AdvReac Intermediate Nausea/Vomi Verified 09/13/22 08:20 ting Medications Home Medications Medication Instructions Recorded Confirmed Last Taken conjugated estrogens 0.625 mg/gram 1 applic vaginal DIRECTED PRN 11/17/18 10/25/22 11/13/18 08:00 vaginal cream (Premarin) Menopausal Symptoms metformin 500 mg tablet 500 mg PO BID 11/17/18 10/25/22 10/24/22 Lactobacills gasseri-Bifidobac 1 cap PO QAM 09/27/19 10/25/22 09/18/22 08:00 bifidum,longum 1.5 billion cell capsule (ON24) cartilage 40 mg-collagen II-boron 1 tab PO QAM 09/27/19 10/25/22 10/24/22 5 mg-hyaluronate sod 3.3 mg tablet (Move Free Ultra Triple Action (boron)) coenzyme Q10 30 mg capsule (CoQ-10) 0 mg PO QAM 09/27/19 10/25/22 10/24/22 famotidine 20 mg tablet 20 mg PO HS PRN Heartburn 09/27/19 10/25/22 09/18/22 20:00 vit C 250 mg-vit E 90 mg-zinc 40 1 tab PO BID 09/27/19 10/25/22 10/24/22 mg-copper 1 lm-hxrsuv-xlnaod capsule (PreserVision AREDS-2) diclofenac sodium 1 % topical gel 2 g topical QID PRN Pain 08/23/22 10/25/22 Unknown docusate sodium 100 mg capsule 100 mg PO BID 08/23/22 10/25/22 10/24/22 diltiazem HCl 180 mg 180 mg PO DAILY 10/25/22 10/25/22 10/25/22 capsule,extended release 24 hr pantoprazole 40 mg tablet,delayed 40 mg PO DAILY 10/25/22 10/25/22 10/25/22 release pravastatin 40 mg tablet 40 mg PO HS 10/25/22 10/25/22 10/24/22 Active Medications Generic Name Dose Route Start Last Admin Trade Name Freq PRN Reason Stop Dose Admin Acetaminophen 1,000 mg 10/26/22 02:05 10/27/22 01:28 Acetaminophen 500 Mg Tab PO 11/25/22 02:04 1,000 mg Q8H BEBE Administration Diltiazem HCl 180 mg 10/26/22 09:00 10/26/22 07:40 Diltiazem Hcl 180 Mg Capcr PO 11/25/22 08:59 180 mg DAILY BEBE Administration Docusate Sodium 100 mg 10/26/22 09:00 10/26/22 19:59 Docusate Sodium 100 Mg Cap PO 11/25/22 08:59 100 mg BID BEBE Administration Insulin Aspart 0 units 10/27/22 06:00 10/27/22 06:01 Insulin Aspart Per Unit SC 11/26/22 05:59 Not Given Q6 BEBE Oxycodone HCl 5 mg 10/25/22 16:24 10/26/22 19:54 Oxycodone Hcl Ir 5 Mg Tab (Immediate Release) PO 11/08/22 16:23 5 mg Q4H PRN Administration Pain Pantoprazole Sodium 40 mg 10/26/22 09:00 10/26/22 07:40 Pantoprazole 40 Mg Tab PO 11/25/22 08:59 40 mg DAILY BEBE Administration Pravastatin Sodium 40 mg 10/25/22 21:00 10/26/22 19:59 Pravastatin Sod 40 Mg Tab PO 11/24/22 20:59 40 mg HS BEBE Administration Past Medical History Medical History (Updated 10/27/22 @ 08:03 by Grant Briggs MD) Chronic back pain Degenerative disc disease Diabetes mellitus, type 2 NIDDM GERD (gastroesophageal reflux disease) Hiatal hernia History of palpitations resolved Hyperlipidemia Hypertension follows w/ Razia Aguirre- [facility] - last visit spring 2021 Kidney stones Macular degeneration LEFT EYE Osteoarthritis Sleep apnea no longer using device Past Family History Family History Mother FHx: Hodgkin's disease Father Heart disease Past Surgical History Surgical History Fusion of spine C3-C4 (NO ROM LIMITATIONS PER PATIENT) H/O vaginal surgery ANTERIOR AND POSTERIOR REPAIR History of appendectomy History of carpal tunnel release RIGHT History of colonoscopy History of esophagogastroduodenoscopy (EGD) History of lithotripsy History of tonsillectomy Hx of cystoscopy Hx of shoulder surgery ORIF RIGHT S/P laparotomy 2/2 TUBAL (+RSO) Social History Smoking Status: Never smoker Do You Dip or Chew Tobacco: No Hx Alcohol Use: No Hx Substance Use: No substance use type: does not use Physical Exam Vital Signs Last Vital Signs Temp 37.3 C 10/26/22 21:14 Pulse 84 10/26/22 21:14 Resp 17 10/26/22 21:14 BP 152/70 H 10/26/22 21:14 Pulse Ox 95 10/26/22 21:14 O2 Del Method 10/26/22 21:14 Testing Laboratory Results 10/27/22 06:41 10/27/22 06:41 10/27/22 10/26/22 05:55 20:43 POC Glucose 113 H 153 H Electrocardiogram Date: 10/25/22 Findings: + NSR @ (75) flattened T waves laterally, possible inverted T waves inferior Chest X-Ray Date: 10/25/22 Findings: + NAD
[2022-10-27] MEDS: PANTOprazole 40 MG TAB PO SCH (08:12)
[2022-10-27] MEDS: dilTIAZem HCL 180 MG CAPCR PO SCH (08:12)
[2022-10-27] MEDS: DOCUSATE SODIUM 100 MG CAP PO SCH ×2 (08:12→21:26)
[2022-10-27] MEDS: oxyCODONE HCL IR 5 MG TAB (IMMEDIATE RELEASE) PO PRN ×2 (08:50→21:25)
[2022-10-27] MEDS ORDERED: ROPIVACAINE 0.5% 5 MG/ML 30 ML VIAL ONE (14:37)
--- NOTE | 2022-10-27 14:49 | Hospitalist Progress Note ---
Date of Service October 27, 2022 Assessment & Plan (1) Closed trimalleolar fracture of right ankle: Plan: Patient is 72-year-old female with PMH HTN, dyslipidemia, prediabetes, RA, CHANTELLE, GERD presented to ER with complaint of mechanical fall and right ankle pain this morning. Initial Right Ankle Xray: Acute fracture dislocation of the right ankle. Acute comminuted angulated and displaced distal fibular fracture with apex medial angulation. Medial malleolar fracture demonstrates several millimeters of lateral displacement. [place] volar angulation. Acute posterior malleolar fracture is also present. There is tibiotalar dislocation with apex medial angulation. T he distal tibia is displaced 2.5 cm in relation to the talus. Ankle was manually reduced in ED with repeat right ankle x-ray: S/P reduction of the right ankle trimalleolar fracture/dislocation with improved anatomic alignment as described above. The proximal tibia and proximal fibula appear intact Patient to undergo surgical fixation today Continue pain meds of scheduled APAP, prn dilaudid and oxy with appropriate pain scales Bowel regimen - routine colace bid pt states she does not do well with morphine in past NWB to RLE EKG 75 nsr- nonspecific t waves in lateral leads, similar to ecg from 10/2018, CXR no acute disease Pt with good functional status at baseline and acceptable surgical risk (2) Hypokalemia: Plan: K: 3.1 on admission replaced, K normal today, 3.9 (3) Hypertension: Plan: Bp controlled, 132/77 Continue diltiazem (4) Hyperlipidemia: Plan: Continue pravastatin (5) Prediabetes: Plan: A1c: 5.8 on 08/04/2022 as per outpatient chart review Hold metformin NovoLog sliding scale per protocol. Monitor BSG's, may need to further adjust glucose adequate, 99 and 107 - will continue to monitor (6) Sleep apnea: Plan: Noncompliant with CPAP DVT Prophylaxis -SCDs Full Code as per discussion with pt Follows with Dr James Don for routine care Pt was seen and care coordinated with Dr Garnett. See addendum A total of 35 minutes was spent with greater than 50% of that time face to face with the patient, personally reviewing all current laboratories, imaging studies, past medication reconciliation, outpatient chart review, and discussion with specialists to collaborate care for the patient with attending. Please see attending documentation for corrections and/or additions. Admission and Anticipated Discharge Date Admission Date: October 25, 2022 Supervising Physician Co-Signing Physician Notes Patient is seen and examined at bedside. States having significant right ankle pain. Planned for right ankle open reduction internal fixation today. Denies any chest pain, shortness, dizziness, nausea, abdominal pain. On exam patient is moderately built and nourished, no apparent distress, normocephalic atraumatic, EOMI, normal breath sounds, clear to auscultation, S1-S2, no murmur, right lower extremity in dressing, no pedal edema, abdomen soft, nontender, normal bowel sounds, alert, awake, oriented, grossly no focal deficits. Patient is being managed for Age-related osteoporosis with possible pathologic fracture, right ankle. S/P reduction of the right ankle. Plan for right ankle open reduction internal fixation today. Bowel regimen to prevent constipation. Pain control. PT OT when appropriate. Appreciate orthopedics input. Monitor for postop anemia. I personally reviewed the record. Patient is interviewed and examined at bedside. Patient's care is coordinated with Avis Mccall PA-C. Please refer to the documentation above for details of patient's presentation and for discussion of other issues. Subjective Patient was seen and examined in room 388-2 in follow up for R ankle fracture. No acute concerns this morning. Awaiting surgery today. No fever, chills, chest pain, sob, n/v/d, dysuria, diarrhea or constipation. Review of Systems Review of Systems: At least ten systems reviewed and negative except as noted in the HPI. Physical Exam Physical Exam: Gen: WD/WN, NAD, lying in bed, A&Ox3 HEENT: Normocephalic, atraumatic, conjunctivae moist, sclerae anicteric, mucous membranes moist Lung: Clear to Auscultation bilaterally, no wheezes/rales/rhonchi Heart: Regular rate, regular rhythm, no murmurs, rubs, or gallops Abdomen: Soft, NT, ND +BS x 4 Extremities: + RLE ankle dressing c/d/i. Distally NVI. No edema Skin: Warm, no rash Results & Data Results & Data ([facility]) Vital Signs (Past 12 Hours) Vital Signs Temp Pulse Resp BP Pulse Ox O2 Del Method 10/27/22 08:14 36.7 C 76 16 149/71 H 97 Room Air Laboratory Results Short CBC 10/27/22 Range/Units 06:41 WBC 7.39 (4.8-10.8) K/ul Hgb 10.8 L (12.0-16.0) g/dl Hct 34.3 (34.1-44.9) % Plt Count 248 (130-400) K/uL BMP 10/27/22 06:41 Sodium 142 Potassium 4.0 Chloride 107 Carbon Dioxide 29 BUN 11 Creatinine 0.75 Glucose 108 H Calcium 8.7 Diagnostic Findings Ankle X-Ray 10/25/22 10:55 XR ankle RT min 3V routine HISTORY: 72 years-old Female pain acute pain of the right ankle status post trauma COMPARISON: None TECHNIQUE: 3 views of the right ankle FINDINGS: Acute fracture dislocation of the right ankle. Acute comminuted angulated and displaced distal fibular fracture with apex medial angulation. Medial malleolar fracture demonstrates several millimeters of lateral displacement. [place] volar angulation. Acute posterior malleolar fracture is also present. There is tibiotalar dislocation with apex medial angulation. The distal tibia is displaced 2.5 cm in relation to the talus. Demineralized appearance of the bones with mild to moderate osteoarthritis. IMPRESSION: Acute fracture dislocation of the ankle as above. ACT 112: Negative or not required by law. The above report was generated using voice recognition software. It may contain grammatical, syntax or spelling errors. Electronically signed by: Rodrigue Jordan M.D. 10/25/2022 11:38 AM Ankle X-Ray 10/25/22 12:19 XR ankle RT min 3V routine, XR tibia fibula RT 2V CLINICAL HISTORY: Postreduction xray. Fall. Right ankle fracture. COMPARISON STUDY: Right ankle 10/25/2022. FINDINGS: Interval reduction of the trimalleolar right ankle fracture which demonstrates improved anatomic alignment. There is persistent posterior and lateral displacement of up to 6 mm. This results in mild lateral subluxation of the talus in relation to the distal tibia. There is diffuse soft tissue swelling within the right ankle. The bones are osteopenic. The proximal tibia and proximal fibula appear intact. IMPRESSION: 1. Status post reduction of the right ankle trimalleolar fracture/dislocation with improved anatomic alignment as described above. 2. The proximal tibia and proximal fibula appear intact. ACT 112: Negative or not required by law. Electronically signed by: John Dhillon M.D. 10/25/2022 12:52 PM Chest X-Ray 10/25/22 12:19 XR chest 1V portable CLINICAL HISTORY: Pre-op TECHNIQUE: Single frontal radiograph of the chest was obtained. Comparison: Comparison is made to chest radiograph 09/12/2022 FINDINGS: Right humeral orthopedic hardware is seen. Calcified aortic knob is seen. The lungs are clear. No evidence of pleural effusion or pneumothorax. IMPRESSION: No acute chest disease. ACT 112: Negative or not required by law. Electronically signed by: Alexis Thurston M.D. 10/25/2022 12:51 PM Tibia/Fibula X-Ray 10/25/22 12:19 XR ankle RT min 3V routine, XR tibia fibula RT 2V CLINICAL HISTORY: Postreduction xray. Fall. Right ankle fracture. COMPARISON STUDY: Right ankle 10/25/2022. FINDINGS: Interval reduction of the trimalleolar right ankle fracture which demonstrates improved anatomic alignment. There is persistent posterior and lateral displacement of up to 6 mm. This results in mild lateral subluxation of the talus in relation to the distal tibia. There is diffuse soft tissue swelling within the right ankle. The bones are osteopenic. The proximal tibia and proximal fibula appear intact. IMPRESSION: 1. Status post reduction of the right ankle trimalleolar fracture/dislocation with improved anatomic alignment as described above. 2. The proximal tibia and proximal fibula appear intact. ACT 112: Negative or not required by law. Electronically signed by: John Dhillon M.D. 10/25/2022 12:52 PM Ankle X-Ray 10/25/22 14:14 RIGHT ANKLE 2 VIEWS CLINICAL HISTORY: Postreduction examination. FINDINGS: AP and crosstable lateral views of the right ankle are compared to study performed earlier the same day 10/25/2022. The examination is performed through a cast, obscuring fine bony detail. The skeletal structures are osteopenic. Again seen is a trimalleolar fracture of the ankle joint. There is persistent widening of the medial joint space which measures up to 6 mm. There is also dorsal displacement of the talus at the tibiotalar articulation by approximately 9 mm. There is associated joint effusion. Overlying soft tissue edema is observed. IMPRESSION: 1. Trimalleolar ankle fracture is again noted. 2. There is persistent widening of the medial joint space as well as mild dorsal displacement of the talus. Electronically signed by: Dimitry Albright M.D. 10/25/2022 2:57 PM
[2022-10-27] MEDS ORDERED: fentaNYL citrate 100 MCG/2 ML VIAL ONE (15:14)
[2022-10-27] MEDS ORDERED: MIDAZOLAM HCL 1 MG/ML 2ML VIAL ONE (15:14)
[2022-10-27] MEDS ORDERED: LIDOCAINE 2% 20 MG/ML 5 ML SYR IV ONE (16:45)
[2022-10-27] MEDS ORDERED: PROPOFOL IV EMULSION 10 MG/ML 20 ML VIAL IV ONE (16:45)
[2022-10-27] MEDS ORDERED: ceFAZolin 2000MG 2,000 MG/15 ML SYR IV ONE ×2 (17:01→21:08)
--- NOTE | 2022-10-27 17:11 | History & Physical Bridge Note ---
Date of Service October 27, 2022 History & Physical Bridge Note I have examined the patient, reviewed the History & Physical and in the interval since the performance of the History & Physical I have noted the following changes of clinical significance: no changes noted
[2022-10-27] MEDS ORDERED: ePHEDrine sulfate 50 MG/ML AMP IV PRN (17:17)
[2022-10-27] MEDS ORDERED: fentaNYL citrate 100 MCG/2 ML VIAL IV PRN (17:17)
[2022-10-27] MEDS ORDERED: HYDROmorphone INJ 2 MG/ML SYR/VIAL IV PRN (17:17)
[2022-10-27] MEDS ORDERED: ATROPINE SULFATE 0.1 MG/ML 10ML SYR IV PRN (17:17)
[2022-10-27] MEDS ORDERED: ONDANSETRON INJ 2 MG/ML 2 ML VIAL IV PRN (17:17)
[2022-10-27] MEDS ORDERED: ONDANSETRON INJ 2 MG/ML 2 ML VIAL ONE (18:06)
[2022-10-27] MEDS ORDERED: ePHEDrine sulfate 50 MG/ML AMP ONE (18:20)
--- NOTE | 2022-10-27 19:33 | Operative Report ---
Post Operative Report Pre & Post Diagnosis Operation Date: 10/27/22 07:00 Pre-Op Diagnosis: Right ankle trimalleolar fracture-dislocation Post-Op Diagnosis: Right ankle trimalleolar fracture-dislocation, likely osteoporosis I identified the patient and participated in the time-out.: Yes Procedure Operation Date: 10/27/22 07:00 Actual Procedures Right ankle open reduction and internal fixation of trimalleolar fracture- dislocation, without fixation of posterior malleolar fragment (03372) - Jose Recio M.D. Surgeon Jose Recio MD Check Writing Machine Operator Dave Grimaldo PA-C Estimated Blood Loss 25 Findings Consistent with Post-Op Diagnosis Specimens None Drains None Anesthesia Type General Regional Complications none Disposition Disposition: Recovery Room Indications Ms. Zhu is a 72-year old female who injured her right ankle when she slipped on the ice on 10/25/22. She had immediate pain and significant deformity in the right ankle. The ankle was reduced in the emergency room, but was noted to be highly unstable with recurrent subluxation. Urgent surgical stabilization was recommended. History, clinical exam, and imaging were consistent with the above diagnosis. Risks, benefits, and alternatives of surgery were explained in detail. The patient understood all this and wished to proceed. Description of Procedure Patient was identified in the preoperative holding area. Operative extremity was marked. Regional blockade was given by the Anesthesia Staff. Patient was then brought back to the operating room, and general anesthesia was induced without complication. Appropriate weight-based dose of Ancef was infused intravenously for antibiotic prophylaxis. Tourniquet was placed on the right upper leg. Leg was then prepped and draped in a standard sterile fashion using Chlorhexidine prep. The lower leg was then exsanguinated with an Esmarch, and the tourniquet was inflated. I first began with the distal fibula fracture. Longitudinal incision was made directly over the fibular shaft, and extending to the distal tip of the fibula. I incised sharply through skin, subcutaneous tissue, and periosteum distally. Proximally, I bluntly dissected through the subcutaneous tissue and the deep fascia was carefully divided, but the superficial peroneal nerve was not encountered during the dissection. I then inspected the fracture site. This was a moderately comminuted and significantly displaced long oblique fracture of the distal tibial shaft. Fracture line was running from proximal-posterior to distal-anterior. Hematoma debris was debrided from the fracture site. Fracture reduction was then performed with longitudinal traction, varus stress, and internal rotation placed across the ankle, and reduction held with a tenaculum clamp. Bone was noted to be very soft, consistent with osteoporosis. A cancellous lag screw was then placed across the fracture site. I then selected an appropriate length 3.5 mm reconstruction plate from the [employer] locking small fragment set. The plate was contoured as necessary and placed along the posterior aspect of the fibular shaft distally, along the course of and deep to the peroneal tendons, and twisting laterally more proximally on the fibular shaft. Plate was then held firmly reduced to bone distally, and a 3.5 mm locking screw was placed posterior to anterior. A nonlocking 3.5mm screw was placed into the fibular shaft proximal to the fracture line to help reduce the plate down to bone. Additional locking 3.5mm screws were placed to complete fracture fixation. I then proceeded with the medial malleolar fracture. Curvilinear incision was made over the medial malleolus, curving anteriorly to visualize reduction of the medial joint surface. I incised through skin and bluntly dissected through subcutaneous tissue to protect the saphenous vein and nerve. Periosteum over the fracture site was incised as necessary to visualize anatomic reduction. I was able to visualize the talus, and full-thickness cartilage injury was noted along the medial corner of the talus. Small cartilage fragments were removed as they were encountered. Ankle joint was flushed with sterile saline. I then used a dental pick to manipulate the medial malleolar fracture fragment back into anatomic alignment. Reduction was held as a guidewire from the [employer] 4.0 mm cannulated screw set was passed obliquely through the medial malleolar fracture fragment and into the distal tibia shaft. A second guidewire was placed parallel to the first. Multiple fluoroscopic images were obtained to ensure proper fracture reduction and guidewire trajectory. I then selected a long-thread partially-threaded 44 mm screw for the more anterior screw, and a 46 mm screw for the posterior screw. These were each passed over the corresponding guidewire and tightened to complete the medial malleolar fixation. Guidewires were then removed. Posterior malleolar fracture was inspected. This was a very small fracture fragment, and did not require fixation. Final fluoroscopic images were then obtained to verify fracture reduction, screw lengths, and hardware position. The wounds were then copiously irrigated with sterile saline. Deep fascia was closed with 3-0 Vicryl suture. Subcutaneous tissue was closed with 3-0 Vicryl, and skin was closed with 4-0 Prolene. Sterile dressings were then applied with Xeroform, sterile gauze, and sterile Webril, followed by a plaster splint and Shaheed wrap. The drapes were removed, the patient was awakened from anesthesia, and taken to the Post Anesthesia Care Unit in stable condition. There were no immediate complications from the procedure. I was present and scrubbed for the entire procedure. Due to the complex nature of the procedure, the entire surgery was performed with the operational assistance of Dave Grimaldo PA-C. The care management assistant, under direct supervision, was involved in the performance of all aspects of the surgical procedure including hemostasis, tissue incision and retraction, instrument management, patient positioning, and wound closure. I attest to the content of the Intraoperative Record and any orders documented therein. Any exceptions are noted below.
[2022-10-27] MEDS ORDERED: METOPROLOL TARTRATE 1 MG/ML VIAL IV ONE (19:47)
[2022-10-27] MEDS ORDERED: METOPROLOL TARTRATE 1 MG/ML VIAL IV STA (19:55)
--- NOTE | 2022-10-27 20:40 | Electrocardiogram Report ---
Test Reason : Blood Pressure : / mmHG Vent. Rate : 075 BPM Atrial Rate : 075 BPM P-R Int : 136 ms QRS Dur : 080 ms QT Int : 374 ms P-R-T Axes : 078 078 -11 degrees QTc Int : 417 ms Normal sinus rhythm Nonspecific ST and T wave abnormality Abnormal ECG When compared with ECG of 12-SEP-2022 10:56, T wave inversion now evident in Inferior leads Confirmed by Ba Chavez ([id number]) on 10/27/2022 8:39:49 PM Referred By: REFERRED SELF Confirmed By:Ba Chavez
--- NOTE | 2022-10-27 20:42 | XRay Report ---
XR ankle RT 2V CLINICAL HISTORY: Postop ORIF; in PACU prior to transfer TECHNIQUE: 3 views of the right ankle were obtained. Comparison: Comparison is made to right ankle radiographs 10/25/2022 FINDINGS: Plate and screw fixation hardware has been placed over the ankle. The ankle is in a cast overlying fi ndings bony detail. The ankle joint appears in anatomic alignment. IMPRESSION: Status post internal fixation of ankle fractures. ACT 112: Negative or not required by law. Electronically signed by: Alexis Thurston M.D. 10/27/2022 8:41 PM
--- NOTE | 2022-10-27 21:13 | Fluoroscopy Report ---
FL ankle RT min 3V RTN CLINICAL HISTORY: RT ORIF ANKLE FX TECHNIQUE: 5 views were obtained with the C-arm in the OR with the above procedure. Total fluoroscopy time was 1 minute 3 seconds. Comparison: None available at the time of this dictation. FINDINGS/IMPRESSION: Intraoperative images were obtained of open reduction internal fixation of right ankle fracture. Please correlate with intraoperative fluoroscopy and operative report. ACT 112: Negative or not required by law. Electronically signed by: Alexis Thurston M.D. 10/27/2022 9:11 PM
[2022-10-27] MEDS: PRAVASTATIN SOD 40 MG TAB PO SCH (21:27)
[2022-10-28] MEDS: INSULIN ASPART PER UNIT SC SCH ×3 (00:47→12:40)
[2022-10-28] MEDS: ACETAMINOPHEN 500 MG TAB PO SCH ×2 (01:44→10:01)
[2022-10-28 07:12] LABS: Hematocrit (blood only) 32.3 % (34.1-44.9); Hemoglobin 10.3 g/dl (12.0-16.0); Mean Corpuscular Hemoglobin 26.8 pg (25.0-34.0); Mean Corpuscular Hgb Conc 31.9 g/dL (32.0-36.0); Mean Corpuscular Volume 84.1 fL (80.0-100.0); Mean Platelet Volume 10.4 fL (9.4-12.3); Platelet Count 233 K/uL (130-400); RDW Standard Deviation 46.4 fL (36.4-46.3); Red Blood Count 3.84 M/uL (3.93-5.22)
[2022-10-28] MEDS: oxyCODONE HCL IR 5 MG TAB (IMMEDIATE RELEASE) PO PRN ×2 (07:28→15:14)
[2022-10-28 08:16] LABS: Calcium 8.3 mg/dl (8.5-10.1); Potassium 3.8 mmol/L (3.5-5.1)
[2022-10-28 08:21] LABS: BUN Creatinine Ratio 12.5 (10-20); Creatinine Clr Calc Pharmacy 68.6 ml/min; Est GFR (African American) 103.3 ml/min; Est GFR (Non-African American) 89.2 ml/min
[2022-10-28] MEDS: PANTOprazole 40 MG TAB PO SCH (08:42)
[2022-10-28] MEDS: dilTIAZem HCL 180 MG CAPCR PO SCH (08:42)
[2022-10-28] MEDS: DOCUSATE SODIUM 100 MG CAP PO SCH (08:43)
--- NOTE | 2022-10-28 09:40 | Anesthesiology Progress Note ---
Date of Service October 28, 2022 Anesthesia Post Procedure Vital Signs Vital Signs: Temp Pulse Pulse Pulse Pulse Resp BP 10/28/22 07:30 36.7 C 84 18 10/28/22 03:48 37.2 C 80 17 10/27/22 23:17 37.1 C 102 H 17 10/27/22 21:58 36.5 C 93 H 16 10/27/22 20:35 87 17 10/27/22 20:25 36.3 C L 85 14 10/27/22 20:15 88 20 10/27/22 19:50 122 H 164/75 H 10/27/22 20:05 90 18 10/27/22 19:55 90 21 10/27/22 19:46 36.2 C L 122 H 21 10/27/22 16:39 36.9 C 91 H 18 10/27/22 15:52 36.6 C 76 18 BP BP Pulse Ox O2 Del Method O2 Flow Rate 10/28/22 07:30 147/69 H 96 Room Air 10/28/22 03:48 132/66 96 Room Air 10/27/22 23:17 164/73 H 95 Room Air 10/27/22 21:58 164/77 H 93 Room Air 10/27/22 20:35 158/76 H 99 Nasal Cannula 2 10/27/22 20:25 156/73 H 98 Nasal Cannula 2 10/27/22 20:15 163/75 H 97 Nasal Cannula 2 10/27/22 19:50 10/27/22 20:05 155/73 H 99 Nasal Cannula 2 10/27/22 19:55 161/76 H 90 Room Air 10/27/22 19:46 164/75 H 94 Room Air 10/27/22 16:39 137/72 96 Room Air 10/27/22 15:52 145/76 H 95 Room Air Pain Intensity Right Ankle: Pain Intensity: 7 Transfer of Care Handoff Completed per policy Notes Mental Status: alert / awake / arousable and participated in evaluation Patient Amnestic to Procedure: Yes Nausea / Vomiting: adequately controlled Pain: adequately controlled Airway Patency, RR, SpO2: stable & adequate BP & HR: stable & adequate Hydration State: stable & adequate Anesthetic Complications: no major complications apparent and Pt Satisfied with anesthetic care
--- NOTE | 2022-10-28 09:41 | Orthopedic Progress Note ---
Date of Service October 28, 2022 Assessment & Plan (1) Closed trimalleolar fracture of right ankle: Plan: Postop day 1 status post ORIF right trimalleolar ankle fracture PT/OT protocols. Nonweightbearing right lower extremity. Continue elevation and ice right lower extremity. DVT prophylaxis-we will add aspirin 81 mg p.o. twice daily. SCD left lower extremity. Pain management as written. DC planning-patient planning for discharge to home. We will see how she progresses with physical therapy and discharge accordingly. Admission and Anticipated Discharge Date Admission Date: October 25, 2022 Subjective Postop day 1 Patient sitting up in bed awake and alert. She states she is little bit tired this morning but otherwise is feeling okay. She is having pain in her right ankle consistent with surgery. She states she had 1 tablet of oxycodone this morning but thinks she might need a second 1. No other complaints at this time. Denies shortness of breath, chest pain, lightheadedness. Physical Exam Physical Exam: Splint/dressings are clean, dry, and intact. Toes are pink and warm. Toes are mobile. Sensation is intact. Results & Data ([facility]) Vital Signs (Past 12 Hours) Vital Signs Temp Pulse Pulse Resp BP BP Pulse Ox 10/28/22 07:30 36.7 C 84 18 147/69 H 96 10/28/22 03:48 37.2 C 80 17 132/66 96 10/27/22 23:17 37.1 C 102 H 17 164/73 H 95 10/27/22 21:58 36.5 C 93 H 16 164/77 H 93 O2 Del Method 10/28/22 07:30 Room Air 10/28/22 03:48 Room Air 10/27/22 23:17 Room Air 10/27/22 21:58 Room Air Laboratory Results Laboratory Results WBC 7.60 K/ul (4.8-10.8) 10/28/22 06:48 RBC 3.84 M/uL (3.93-5.22) L 10/28/22 06:48 Hgb 10.3 g/dl (12.0-16.0) L 10/28/22 06:48 Hct 32.3 % (34.1-44.9) L 10/28/22 06:48 MCV 84.1 fL (80.0-100.0) 10/28/22 06:48 MCH 26.8 pg (25.0-34.0) 10/28/22 06:48 MCHC 31.9 g/dL (32.0-36.0) L 10/28/22 06:48 RDW Std Deviation 46.4 fL (36.4-46.3) H 10/28/22 06:48 RDW Coeff of Onel 15.0 % (11.5-14.5) H 10/28/22 06:48 Plt Count 233 K/uL (130-400) 10/28/22 06:48 MPV 10.4 fL (9.4-12.3) 10/28/22 06:48 Sodium 141 mmol/L (136-145) 10/28/22 06:48 Potassium 3.8 mmol/L (3.5-5.1) 10/28/22 06:48 Chloride 106 mmol/L (98-107) 10/28/22 06:48 Carbon Dioxide 28 mmol/L (21-32) 10/28/22 06:48 Anion Gap 7 (3-11) 10/28/22 06:48 BUN 8 mg/dl (6-23) 10/28/22 06:48 Creatinine 0.64 mg/dl (0.6-1.2) 10/28/22 06:48 Est Cr Clr Drug Dosing 68.6 ml/min 10/28/22 06:48 Est GFR ( Amer) 103.3 ml/min 10/28/22 06:48 Est GFR (Non-Af Amer) 89.2 ml/min 10/28/22 06:48 BUN/Creatinine Ratio 12.5 (10-20) 10/28/22 06:48 Glucose 99 mg/dl (70-99(Fasting)) 10/28/22 06:48 POC Glucose 101 mg/dl (70-99) H 10/28/22 08:25 Calcium 8.3 mg/dl (8.5-10.1) L 10/28/22 06:48 Magnesium 1.9 mg/dl (1.7-2.4) 10/26/22 07:15 Hepatitis C Ab (EIA) NON-REACTIVE (NON-REACTIVE) 10/26/22 07:15 Hep C Ab Signal/Cutoff <0.02 (<1.00) 10/26/22 07:15 SARS-CoV-2, RNA, NAAT NEGATIVE (NEGATIVE) 10/25/22 15:15 Impressions Ankle X-Ray 10/27/22 19:40 XR ankle RT 2V CLINICAL HISTORY: Postop ORIF; in PACU prior to transfer TECHNIQUE: 3 views of the right ankle were obtained. Comparison: Comparison is made to right ankle radiographs 10/25/2022 FINDINGS: Plate and screw fixation hardware has been placed over the ankle. The ankle is in a cast overlying findings bony detail. The ankle joint appears in anatomic alignment. IMPRESSION: Status post internal fixation of ankle fractures. ACT 112: Negative or not required by law. Electronically signed by: Alexis Thurston M.D. 10/27/2022 8:41 PM
--- NOTE | 2022-10-28 14:31 | Discharge Summary ---
Date of Service October 28, 2022 Admission HPI Per Admitting Provider Patient is 72-year-old female with PMH HTN, dyslipidemia, prediabetes, RA, CHANTELLE, GERD presented to ER with complaint of fall and right ankle pain prior to ER arrival today. Patient states was walking and slipped on ice injuring her right ankle. Was unable to bear weight on ankle. In ER found to have dislocated right trimalleolar fracture. Initially after injury patient had numbness/tingling sensation to right foot and toes which has since resolved after reduction performed in ER today. Patient denies any symptoms prior to fall. Denies history of prior right ankle injury. Denies fever/chills, diaphoresis, N/V/D/C, REILLY, dizziness, syncope, neck pain, CP, SOB, cough, sore throat, rhinorrhea, abdominal pain, extremity weakness, extremity edema, rashes, urinary symptoms. Admission Exam Per Admitting Provider General: no acute distress, WDWN Head: normocephalic, atraumatic Eyes: conjunctiva non-injected, anicteric ENT: normal inspection external ears, nose, mucous membranes moist Neck: supple, trachea midline Lungs: clear, no respiratory distress, no wheezing/rhonchi/rales CV: RRR, no murmur, no pretibial edema Abd: normal BS, soft, non-tender Ext: BUE: normal appearance with ROM intact. LLE: normal appearance, ROM intact. RLE: +splint to right lower leg in place. Neuro: A&O x 3, no focal deficits noted, normal affect Skin: warm, dry Principal Diagnosis Right trimalleolar fracture Discharge Exam Gen: WD/WN, NAD, lying in bed, A&Ox3 HEENT: Normocephalic, atraumatic, conjunctivae moist, sclerae anicteric, mucous membranes moist Lung: Clear to Auscultation bilaterally, no wheezes/rales/rhonchi Heart: Regular rate, regular rhythm, no murmurs, rubs, or gallops Abdomen: Soft, NT, ND +BS x 4 Extremities: + RLE ankle dressing c/d/i. Distally NVI. No edema Skin: Warm, no rash Discharge Data Allergies Allergy/AdvReac Type Severity Reaction Status Date / Time morphine AdvReac Intermediate Nausea/Vomi Verified 09/13/22 08:20 ting Consultations 10/25/22 13:49 ED Decision to Admit Stat 10/25/22 14:09 Consult Orthopedic Surgery Routine Procedures Performed Operation Date: 10/27/22 07:00 Actual Procedures p Right Open Reduction Internal Fixation Trimalleolar Ankle Fracture(Right) - Jose Recio M.D. Ordered Studies 10/27/22 FL ankle RT min 3V RTN Routine 10/27/22 17:17 US - OR guided needle placemen Routine Hospital Course (1) Closed trimalleolar fracture of right ankle: (2) Hypokalemia: (3) Hypertension: (4) Hyperlipidemia: (5) Prediabetes: (6) Sleep apnea: Patient is 72-year-old female with PMH HTN, dyslipidemia, prediabetes, RA, CHANTELLE, GERD presented to ER with complaint of mechanical fall and right ankle pain this morning. Initial R ankle XR showing acute comminuted angulated and displaced distal fibular fracture with apex medial angulation. Medial malleolar fracture demonstrates several millimeters of lateral displacement. Aristes volar angulation. Acute posterior malleolar fracture is also present. There is tibiotalar dislocation with apex medial angulation. The distal tibia is displaced 2.5 cm in relation to the talus. Ankle was manually reduced in ED. Underwent Right ankle open reduction and internal fixation of trimalleolar fracture-dislocation, without fixation of posterior malleolar fragment by Dr. Recio on 10/27/22. Tolerated procedure well and has been ambulating well with supportive device as she remains non weightbearing on RLE. Evaluated by PT OT this afternoon and recommended for return home. RLE in splint per ortho with instructions to remain non-weight bearing on RLE using crutches or a walker for support and balance. Instructed to continue baby aspirin twice a day for the next 2 weeks for DVT prophylaxis per Ortho. Continue Tylenol as needed for pain control and oxycodone as needed for severe as needed breakthrough pain. Follow-up with PCP and Ortho as instructed. Patient comfortable and he medically stable at time of discharge home. Total Time Total Time Spent Total Time Spent (In Minutes): 35 Discharge Plan Discharge Items Patient Disposition: Home - Self-Care Reason For Visit: R ANKLE FRACTURE Discharge Diagnosis: Right ankle trimalleolar fracture-dislocation Activity: Per Instructions section Weightbearing: Right non-weightbearing Weightbearing Comment: non weightbearing with walker or crutches Non-emergency contact: Surgeon Call non-emergency contact if: your pain is not controlled, your temperature is above 101.5, your wound has increased redness and your wound has increased drainage Follow-up/Referrals: Jose Recio M.D. [Physician] - 11/09/22 11:30 am Angella aGrdner MD [Primary Care Provider] - Diet: Carb Consistent or DM2 Addtl Attending Provider Instructions: Things to Watch Out For -Go to the Emergency Room if you have sudden onset of chest pain, shortness of breath, or uncontrollable pain. -Call the orthopedics clinic immediately if you have a sudden increase in the amount of wound drainage or the drainage becomes thick, yellow or green, or foul-smelling. -For routine questions regarding your ankle surgery, call the orthopedics clinic at [phone] during regular business hours (8am-5pm). For urgent issues after regular business hours, you may call the clinic to be connected to the on-call physician. Splint/Dressings -Do not remove your splint or dressings until you follow up in clinic or with therapy. -Keep the splint and dressings clean and dry. If the splint padding gets damp, you may use a nursing program chair on a low heat setting to dry it out. If the splint padding is soaked, call the clinic to have the splint replaced. -Do not put any objects down inside the splint (such as coat hangers). They could scratch your skin and cause a serious infection underneath the splint. Weight Bearing -DO NOT bear any weight on your operative leg. Use crutches or a walker for support and balance. Followup -Call [facility] at [phone] and schedule a followup appointment with Dr. Recio for 10-14 days after your surgery. Addtl Rn Traveling Provider Instructions: Admitted after fall for trimalleolar fracture. Underwent Right ankle open reduction and internal fixation of trimalleolar fracture-dislocation, without fixation of posterior malleolar fragment by Dr. Recio on 10/27/22. Tolerated procedure well and has been ambulating well with supportive device. Evaluated by PT OT this afternoon and recommended for return home. Weightbearing and dressing instructions per orthopedics as above. Continue baby aspirin twice daily for the next 2 weeks. Continue Tylenol as needed pain and oxycodone for as needed severe breakthrough pain. RECOMMENDATIONS FOR FOLLOW-UP: Follow-up with PCP and set up orthopedic postop appointment as instructed above. OTHER INSTRUCTIONS: Seek medical attention if you have: * temperature above 101 * chest pain or trouble breathing * abdominal pain, nausea, vomiting * diarrhea, dark stools or bloody stools * any unanswered questions or concerns Call 911 if symptoms are severe. Please take good care of yourself. Call if you have any questions or problems. You can reach a [facility] hospitalist on duty at [facility] 24 hours a day by calling [phone]. Avis Mccall PA-C [facility] Hospitalist Pending Studies at Discharge: No Stand-Alone Forms: My [facility], Smoking Cessation Medications and DC Order Prescriptions: New oxycodone 5 mg Tablet 5 mg PO Q8H PRN (Reason: severe pain (scale score 7-10)) Qty: 6 0RF aspirin 81 mg capsule 81 mg PO BID Qty: 28 0RF Rx Instructions: Take twice a day for 2 weeks ergocalciferol (vitamin D2) 50 mcg (2,000 unit) tablet 50 mcg PO DAILY 30 Days Qty: 30 0RF Continued diclofenac sodium 1 % gel 2 g topical QID PRN (Reason: Pain) Rx Instructions: apply to single elbow, wrist or hand; for hand includes palm/fingers/back of hand docusate sodium 100 mg capsule 100 mg PO BID famotidine 20 mg tablet 20 mg PO HS PRN (Reason: Heartburn) coenzyme Q10 [CoQ-10] 30 mg Capsule 0 mg PO QAM Swing by Swing 1.5 billion cell Capsule 1 cap PO QAM PreserVision AREDS-2 [id number] wt-glwf-iy-mg Capsule 1 tab PO BID qxkojediv-hrrrptzx-xiq-hyalur [Move Free Ultra Triple Action] 40-5-3.3 mg Tablet 1 tab PO QAM metformin 500 mg Tablet 500 mg PO BID Premarin 0.625 mg/gram Cream 1 applic Vaginal DIRECTED PRN (Reason: Menopausal Symptoms) pravastatin 40 mg tablet 40 mg PO HS diltiazem HCl 180 mg capsule,extended release 24hr 180 mg PO DAILY pantoprazole 40 mg tablet,delayed release (/EC) 40 mg PO DAILY Discharge Orders: Discharge Order (Routine); Ordered 10/28/22 Ordered By: Avis Mccall Admission Data Admit Date/Time: 10/25/22 14:09 Attending Provider: Ken Mayo Admit Provider: Bessie Qureshi Primary Care Provider: Angella Gardner Other Providers: Avis Mccall ; Bessie Qureshi ; Rodrigue King Other Interventions: Discharge Summary Assessment (RN) Last Done: 10/28/22 14:04 Supervising Physician Co-Signing Physician Notes Patient seen and examined at bedside. Agree with above documentation by Avis Mccall PA-C She reports good control of pain. Had bowel movement yesterday. PT OT recommends home. Patient discharged home on aspirin twice daily for DVT prophylaxis for 2 weeks as per Ortho recommendation. Follow-up with Ortho.
[2022-10-28] MEDS ORDERED: ASPIRIN 81 MG ECTAB PO SCH (21:00)
== END 2022-10-28 16:33 | disposition home or self-care (01) | DRG 494 ==
LOC: ED 10:23 → EDINP 14:09 → SUATTDRO 14:09 → 3N 18:07
DX: M80.071A Age-related osteoporosis with current pathological fracture, right ankle and foot, initial encounter for fracture; I10 Essential (primary) hypertension; Z79.84 Long term (current) use of oral hypoglycemic drugs; K21.9 Gastro-esophageal reflux disease without esophagitis; Z88.5 Allergy status to narcotic agent; Z98.1 Arthrodesis status; E78.5 Hyperlipidemia, unspecified; E87.6 Hypokalemia; R73.03 Prediabetes; G47.33 Obstructive sleep apnea (adult) (pediatric); W00.0XXA Fall on same level due to ice and snow, initial encounter; Y92.89 Other specified places as the place of occurrence of the external cause